=== PATIENT | female | born 1990 | race Caucasian/White ===

== ENCOUNTER 2017-03-03 16:34 | Emergency (ER) | payer BC ==
[~2017-03-03] VITALS: Ht 162.6 cm; Wt 56.7 kg
--- NOTE | 2017-03-03 16:37 | ER Report ---
History and Physical Time Seen By MD: 16:36 Hx. of Stated Complaint: Shortness of breath HPI/ROS Patient is 11 weeks is from [place] and known bilateral PEs switched from eliquis to Lovenox on January 14. cough sob, pleuritic right sided chest pain Remainder of the 14 system rev: Yes Allergies: Coded Allergies: sulfamethoxazole (Verified Allergy, Intermediate, RASH, 03/03/17) trimethoprim (Verified Allergy, Intermediate, RASH, 03/03/17) Home Meds Active Scripts Amoxicillin/Pot Clav 875-125 Mg Tab (AUGMENTIN 875-125 TABLET) 1 Each Tablet, 1 TAB PO Q12H for 7 Days, TAB Prov:HAMIDA MACKENZIE Gini RAILWAY SWITCH OPERATOR-C 03/03/17 Reported Medications Enoxaparin Sodium (LOVENOX) 60 Mg/0.6 Ml Disp.syrin, 60 MG SQ BID 03/03/17 Past Medical/Surgical History Bilateral PE patient is 11 weeks has been seeing heel scorer for clotting disorders states so far testing to shows positive for lupus antigen Reviewed Nurses Notes: Yes Old Medical Records Reviewed: Yes Hx Smoking: No Exposure to Second Hand Smoke?: No Hx Substance Use Disorder: No Hx Alcohol Use: No Family History of: Other Constitutional Vital Sign - Last 24 Hours 03/03/17 03/03/17 03/03/17 03/03/17 16:41 16:41 16:45 16:49 Temp 98.6 Pulse 74 74 Resp 20 19 B/P (MAP) 107/75 (86) 107/75 100/65 (77) Pulse Ox 96 97 03/03/17 03/03/17 03/03/17 03/03/17 17:00 17:04 17:34 17:45 Pulse 74 96 Resp 17 36 B/P (MAP) 101/65 (77) 99/61 (74) Pulse Ox 97 Intake and Output 03/03/17 03/03/17 03/04/17 15:00 23:00 07:00 Intake Total 500 ml Balance 500 ml Physical Exam 26-year-old female anxious alert oriented mild distress HEENT head is normocephalic/atraumatic tympanic membranes are non-reddened throat is non- reddened neck is supple no JVD heart rate is regular no murmurs rubs and gallops lungs are decreased bilateral bases abdomen is gravid no peripheral edema Medical Decision Making Data Points Result Diagram: 03/03/17 1709 03/03/17 1709 Laboratory Hematology Test 03/03/17 17:09 Red Blood Count 4.57 M/uL (4.17-5.56) Mean Corpuscular Volume 92.8 fL (80.0-96.0) Mean Corpuscular Hemoglobin 32.5 pg (26.0-33.0) Mean Corpuscular Hemoglobin Concent 35.0 g/dL (32.0-36.0) Red Cell Distribution Width 12.5 % (11.5-14.5) Mean Platelet Volume 10.0 fL (7.2-11.1) Neutrophils (%) (Auto) 64.7 % (39.4-72.5) Lymphocytes (%) (Auto) 22.9 % (17.6-49.6) Monocytes (%) (Auto) 9.7 % (4.1-12.4) Eosinophils (%) (Auto) 1.6 % (0.4-6.7) Basophils (%) (Auto) 1.1 % (0.3-1.4) Nucleated RBC Relative Count (auto) 0.1 /100WBC Neutrophils # (Auto) 5.8 K/uL (2.0-7.4) Lymphocytes # (Auto) 2.0 K/uL (1.3-3.6) Monocytes # (Auto) 0.9 K/uL (0.3-1.0) Eosinophils # (Auto) 0.1 K/uL (0.0-0.5) Basophils # (Auto) 0.1 K/uL (0.0-0.1) Nucleated RBC Absolute Count (auto) 0.01 K/uL Peripheral Blood Smear No Y/N Prothrombin Time 12.9 seconds (12.0-14.4) Prothromb Time International Ratio 0.98 Activated Partial Thromboplast Time 34 seconds (23-35) D-Dimer Quantitative (PE/DVT) < 0.27 ug/ml (0-0.50) Blood Gas Patient Temperature Unknown DEGREES Venous Blood pH 7.35 (7.31-7.41) Venous Blood Partial Pressure CO2 43 mmHg Venous Blood Partial Pressure O2 < 35 mmHg Venous Blood HCO3 24 mmol/L Venous Blood Oxygen Saturation 55 % Venous Blood Base Excess -2 mmol/L Oxygen Liters/Minute Unknown Sodium Level 134 mmol/L (137-145) Potassium Level 3.9 mmol/L (3.5-5.0) Chloride Level 100 mmol/L (98-107) Carbon Dioxide Level 24 mmol/L (22-31) Blood Urea Nitrogen 8 mg/dl (7-18) Creatinine 0.60 mg/dl (0.52-1.04) Glomerular Filtration Rate Calc > 60.0 Random Glucose 63 mg/dl (75-110) Calcium Level 9.7 mg/dl (8.4-10.2) Total Bilirubin 0.5 mg/dl (0.2-1.3) Aspartate Amino Transf (AST/SGOT) 18 U/L (0-35) Alanine Aminotransferase (ALT/SGPT) 37 U/L (0-56) Alkaline Phosphatase 47 U/L (0-126) Troponin I < 0.012 ng/ml B-Type Natriuretic Peptide 18 pg/ml (0-100) Total Protein 6.8 gm/dl (6.3-8.2) Albumin 3.9 g/dl (3.5-5.0) Chemistry Test 03/03/17 17:09 White Blood Count 8.9 k/uL (4.5-11.0) Red Blood Count 4.57 M/uL (4.17-5.56) Hemoglobin 14.8 g/dL (12.0-16.0) Hematocrit 42.4 % (34.0-47.0) Mean Corpuscular Volume 92.8 fL (80.0-96.0) Mean Corpuscular Hemoglobin 32.5 pg (26.0-33.0) Mean Corpuscular Hemoglobin Concent 35.0 g/dL (32.0-36.0) Red Cell Distribution Width 12.5 % (11.5-14.5) Platelet Count 208 K/uL (150-450) Mean Platelet Volume 10.0 fL (7.2-11.1) Neutrophils (%) (Auto) 64.7 % (39.4-72.5) Lymphocytes (%) (Auto) 22.9 % (17.6-49.6) Monocytes (%) (Auto) 9.7 % (4.1-12.4) Eosinophils (%) (Auto) 1.6 % (0.4-6.7) Basophils (%) (Auto) 1.1 % (0.3-1.4) Nucleated RBC Relative Count (auto) 0.1 /100WBC Neutrophils # (Auto) 5.8 K/uL (2.0-7.4) Lymphocytes # (Auto) 2.0 K/uL (1.3-3.6) Monocytes # (Auto) 0.9 K/uL (0.3-1.0) Eosinophils # (Auto) 0.1 K/uL (0.0-0.5) Basophils # (Auto) 0.1 K/uL (0.0-0.1) Nucleated RBC Absolute Count (auto) 0.01 K/uL Peripheral Blood Smear No Y/N Prothrombin Time 12.9 seconds (12.0-14.4) Prothromb Time International Ratio 0.98 Activated Partial Thromboplast Time 34 seconds (23-35) D-Dimer Quantitative (PE/DVT) < 0.27 ug/ml (0-0.50) Blood Gas Patient Temperature Unknown DEGREES Venous Blood pH 7.35 (7.31-7.41) Venous Blood Partial Pressure CO2 43 mmHg Venous Blood Partial Pressure O2 < 35 mmHg Venous Blood HCO3 24 mmol/L Venous Blood Oxygen Saturation 55 % Venous Blood Base Excess -2 mmol/L Oxygen Liters/Minute Unknown Glomerular Filtration Rate Calc > 60.0 Calcium Level 9.7 mg/dl (8.4-10.2) Total Bilirubin 0.5 mg/dl (0.2-1.3) Aspartate Amino Transf (AST/SGOT) 18 U/L (0-35) Alanine Aminotransferase (ALT/SGPT) 37 U/L (0-56) Alkaline Phosphatase 47 U/L (0-126) Troponin I < 0.012 ng/ml B-Type Natriuretic Peptide 18 pg/ml (0-100) Total Protein 6.8 gm/dl (6.3-8.2) Albumin 3.9 g/dl (3.5-5.0) Coagulation Test 03/03/17 17:09 Prothrombin Time 12.9 seconds Prothromb Time International Ratio 0.98 Activated Partial Thromboplast Time 34 seconds D-Dimer Quantitative (PE/DVT) < 0.27 ug/ml ED Course/Re-evaluation Clinical Indication for ER IV: Hydration ED Course Discussed risk-benefit for patient. CTA prep prior to procedure patient and agree to go ahead with CTA cta is negative for pe, will treat for early pneumonia, has pleuritic cp rll, cough Re-evaluation discussed antibiotics with dr salazar as pt is symptomatic will treat presumptive pneumonia with augmentin Decision to Disposition Date: Mar 03, 2017 Decision to Disposition Time: 17:40 Depart Departure Latest Vital Signs Vital Signs Date Time Temp Pulse Resp B/P (MAP) Pulse Ox O2 Delivery O2 Flow Rate FiO2 03/03/17 17:45 99/61 (74) 03/03/17 17:34 96 36 03/03/17 17:04 97 03/03/17 16:41 98.6 Impression: Primary Impression: Pneumonia Additional Impression: Condition: Improved Disposition: HOME OR SELF-CARE Referrals: PHOTO TECHNOLOGIST 2 Days New Scripts Amoxicillin/Pot Clav 875-125 Mg Tab (AUGMENTIN 875-125 TABLET) 1 Each Tablet 1 TAB PO Q12H for 7 Days, TAB Prov: HAMIDA MACKENZIE 03/03/17 Patient Instructions: Community Acquired Pneumonia (ED), (ED) Additional Instructions: discussed with dr ward will proceed with ct, ASSEMBLER BONDING/PA consult with MD: Verbally Problem Qualifiers HAMIDA MACKENZIE Mar 03, 2017 16:37
[2017-03-03] MEDS ORDERED: NS(*) 0.9% 1000 ML BAG 1,000 ML IV ONE (16:40)
--- NOTE | 2017-03-03 16:53 | EKG ---
FACILITY: [facility] PATIENT NAME: FADY BUTTS : [id number] MR: [id number] V: [id number] EXAM DATE: ORDERING PHYSICIAN: HAMIDA MACKENZIE TECHNOLOGIST: SENAIT Luna Reason : PE Blood Pressure : / mmHG Vent. Rate : 071 BPM Atrial Rate : 071 BPM P-R Int : 140 ms QRS Dur : 082 ms QT Int : 388 ms P-R-T Axes : 074 071 054 degrees QTc Int : 421 ms Sinus rhythm No acute appearing findings Possible right atrial enlargement No previous ECGs available Confirmed by BARNEY BUSH ([id number] on 03/03/2017 7:54:53 PM Referred By: GURDEEP Confirmed By:BARNEY BUSH
[2017-03-03 17:17] LABS: PLATELET COUNT, AUTOMATED 208 K/uL (150-450)
[2017-03-03 17:34] LABS: INR 0.98
[2017-03-03] MEDS ORDERED: IOPAMIDOL 76% 75 ML INFUS BTL 75 ML ONE (17:36)
[2017-03-03] MEDS ORDERED: NS 0.9% 20 ML SDV 60 ML ONE (17:36)
[2017-03-03] MEDS ORDERED: ENOX60DI8 SQ (17:41)
[2017-03-03 17:45] VITALS: BP 99/61
--- NOTE | 2017-03-03 18:06 | RADIOLOGY IMAGING REPORT ---
FACILITY: [facility] [place] PATIENT NAME: Winsome Tellez : 1990 MR: [id number] V: [id number] EXAM DATE: ORDERING PHYSICIAN: HAMIDA MACKENZIE TECHNOLOGIST: Location: [facility] Patient: Winsome Tellez : 1990 Visit/Account:[id number] Date of Sevice: 03/03/2017 CT angiogram chest with contrast Indication: Short of breath. Comparison: None available. Technique: Axial CT images are obtained through the chest after administration of 75 mL Isovue 370 IV contrast. Reformatted coronal and sagittal images were reviewed as well as coronal MIP images. One of the following dose optimization techniques was utilized in the performance of this exam: auto mated exposure control; adjustment of the mA and/or kV according to the patient's size; or use of an iterative reconstruction technique. Specific details can be referenced in the facility's radiology C T exam operational policy. FINDINGS: No evidence of filling defect within the pulmonary vasculature to suggest pulmonary embolus. The heart is normal size without pericardial effusion there is some reflux of contrast from the right atrium into the IVC and hepatic veins. The aorta shows no aneurysm or dissection. Mediastinum and hi lar regions show no enlarged lymph nodes or abnormal density. Lungs show no pleural effusion or pneumothorax. Small area of consolidation seen right lower lobe. Rochelle ngs show no other areas of consolidation. No nodule. No focal interstitial opacities. Airways are jerri ar. Bony structures show no acute fracture or discrete lesions. The chest wall shows no enlarged axillary lymph nodes or masses. Limited views of the upper abdomen are unremarkable. IMPRESSION: 1. No evidence of pulmonary embolus. 2. Small area of right basilar consolidation. Atelectasis versus pneumonia. Report Dictated By: Lew Davis at 03/03/2017 5:53 PM Report E-Signed By: Lwe Davis at 03/03/2017 6:02 PM [id number]
[2017-03-03] MEDS ORDERED: AMOX-559 PO (18:18)
== END 2017-03-03 18:46 | disposition home or self-care (01) ==
LOC: ER 17:25
DX: O99.511 Diseases of the respiratory system complicating pregnancy, first trimester (principal); Z3A.11 11 weeks gestation of pregnancy; R07.89 Other chest pain; R06.02 Shortness of breath
CPT/HCPCS: 71275; 82803; 83880; 84484; 85025; 85379; 85610; 85730; 93005; 96360; 99284; J7030; J7050; Q9967; 82040; 82247; 82310; 82374; 82435; 82565; 82947; 84075; 84132; 84155; 84295; 84450; 84460; 84520

== ENCOUNTER 2017-05-22 18:33 | Emergency (ER) | payer BC ==
[~2017-05-22 18:33] MED LIST: AMOX-559 PO; ENOX60DI8 SQ
[2017-05-22] MEDS ORDERED: LR(*) 1000 ML BAG 1,000 ML IV ONE (18:54)
--- NOTE | 2017-05-22 18:54 | ER Report ---
History and Physical Time Seen By MD: 18:49 HPI/ROS CHIEF COMPLAINT: Anxiety, not eating 4 days HISTORY OF PRESENT ILLNESS: 27-year-old female with severe anxiety with 6 months . She is being followed by Dr. Nick. Patient states she's been severely stressed and been unable to eat since Friday night. Dinner was the last meal she had. She notes some nausea and occasional vomiting. She is reluctant to take anything with her . Patient states she's been unable to eat anything. REVIEW OF SYSTEMS: Respiratory: No cough, no dyspnea. Cardiovascular: No chest pain, no palpitations. Gastrointestinal: No vomiting, no abdominal pain. Musculoskeletal: No back pain. Allergies: Coded Allergies: sulfamethoxazole (Verified Allergy, Intermediate, RASH, 05/22/17) trimethoprim (Verified Allergy, Intermediate, RASH, 05/22/17) Home Meds Reported Medications Vits W-Ca,Fe,Fa(<1MG) ( VITAMINS) 1 Each Tablet, 1 EACH PO DAILY, TAB 05/25/17 Enoxaparin Sodium (LOVENOX) 60 Mg/0.6 Ml Disp.syrin, 60 MG SQ BID 03/03/17 Discontinued Scripts Amoxicillin/Pot Clav 875-125 Mg Tab (AUGMENTIN 875-125 TABLET) 1 Each Tablet, 1 TAB PO Q12H for 7 Days, TAB Prov:HAMIDA MACKENZIE 03/03/17 Reviewed Nurses Notes: Yes Old Medical Records Reviewed: Yes Hx Smoking: No Exposure to Second Hand Smoke?: No Hx Substance Use Disorder: No Hx Alcohol Use: No Constitutional Vital Sign - Last 24 Hours 05/22/17 05/22/17 05/22/17 05/22/17 18:45 18:48 18:51 19:03 Temp 98.6 Pulse 94 106 113 Resp 20 B/P (MAP) 111/81 (91) 111/81 Pulse Ox 94 95 94 O2 Delivery Room Air 05/22/17 05/22/17 05/22/17 05/22/17 19:18 19:23 19:38 19:40 Pulse 91 100 92 B/P (MAP) 108/74 (85) Pulse Ox 96 97 97 05/22/17 05/22/17 05/22/17 05/22/17 19:53 20:00 20:08 20:23 Pulse 121 108 95 B/P (MAP) 108/76 (87) Pulse Ox 96 100 94 05/22/17 05/22/17 05/22/17 05/22/17 20:28 20:30 20:43 20:58 Pulse 98 109 137 B/P (MAP) 112/73 (86) Pulse Ox 96 99 97 05/22/17 05/22/17 21:00 21:13 Pulse 120 B/P (MAP) 107/53 (71) Pulse Ox 99 Physical Exam General Appearance: The patient is alert, has no immediate need for airway protection and no current signs of toxicity. Eyes: Pupils equal and round no injection. Respiratory: Chest is non tender, lungs are clear to auscultation. Cardiac: regular rate and rhythm Gastrointestinal: Abdomen is soft and non tender, gravid, consistent with dates no masses, bowel sounds normal. Musculoskeletal: Neck: Neck is supple and non tender. Extremities have full range of motion and are non tender. Skin: No rashes or lesions. DIFFERENTIAL DIAGNOSIS: After history and physical exam differential diagnosis was considered for anxiety, panic attack, morning sickness, vomiting Medical Decision Making Data Points Result Diagram: 05/22/178 05/22/178 Laboratory Hematology Test 05/22/17 18:43 05/22/17 18:48 Urine Color Yellow Urine Clarity Cloudy Urine pH 5.0 pH (4.8-9.5) Urine Specific Cougar 1.033 Urine Protein 30 mg/dL (NEGATIVE) Urine Glucose (UA) Negative mg/dL (NEGATIVE) Urine Ketones 80 mg/dL (NEGATIVE) Urine Blood Negative (NEGATIVE) Urine Nitrite Negative (NEGATIVE) Urine Bilirubin Negative (NEGATIVE) Urine Urobilinogen 2.0 mg/dL (0.2-1.9) Urine Leukocyte Esterase Trace (NEGATIVE) Urine RBC 1 /HPF (0-2/HPF) Urine WBC 14 /HPF (0-5/HPF) Urine Squamous Epithelial Cells Many /LPF (</=FEW) Urine Bacteria Few /HPF (NONE-FEW) Urine Mucus Few /HPF (NONE-FEW) Red Blood Count 4.60 M/uL (4.17-5.56) Mean Corpuscular Volume 93.3 fL (80.0-96.0) Mean Corpuscular Hemoglobin 32.7 pg (26.0-33.0) Mean Corpuscular Hemoglobin Concent 35.0 g/dL (32.0-36.0) Red Cell Distribution Width 13.3 % (11.5-14.5) Mean Platelet Volume 9.3 fL (7.2-11.1) Neutrophils (%) (Auto) 71.4 % (39.4-72.5) Lymphocytes (%) (Auto) 19.3 % (17.6-49.6) Monocytes (%) (Auto) 8.5 % (4.1-12.4) Eosinophils (%) (Auto) 0.2 % (0.4-6.7) Basophils (%) (Auto) 0.6 % (0.3-1.4) Nucleated RBC Relative Count (auto) 0.0 /100WBC Neutrophils # (Auto) 7.4 K/uL (2.0-7.4) Lymphocytes # (Auto) 2.0 K/uL (1.3-3.6) Monocytes # (Auto) 0.9 K/uL (0.3-1.0) Eosinophils # (Auto) 0.0 K/uL (0.0-0.5) Basophils # (Auto) 0.1 K/uL (0.0-0.1) Nucleated RBC Absolute Count (auto) 0.00 K/uL Sodium Level 135 mmol/L (137-145) Potassium Level 3.4 mmol/L (3.5-5.0) Chloride Level 100 mmol/L (98-107) Carbon Dioxide Level 19 mmol/L (22-31) Blood Urea Nitrogen 7 mg/dl (7-18) Creatinine 0.60 mg/dl (0.52-1.04) Glomerular Filtration Rate Calc > 60.0 Random Glucose 79 mg/dl (75-110) Calcium Level 9.6 mg/dl (8.4-10.2) Total Bilirubin 0.8 mg/dl (0.2-1.3) Aspartate Amino Transf (AST/SGOT) 17 U/L (0-35) Alanine Aminotransferase (ALT/SGPT) 22 U/L (0-56) Alkaline Phosphatase 62 U/L (0-126) Total Protein 8.0 gm/dl (6.3-8.2) Albumin 4.3 g/dl (3.5-5.0) Amylase Level 90 U/L (0-110) Lipase 97 U/L (23-300) Human Chorionic Gonadotropin, Qual Positive (NEGATIVE) Chemistry Test 05/22/17 18:43 05/22/17 18:48 Urine Color Yellow Urine Clarity Cloudy Urine pH 5.0 pH (4.8-9.5) Urine Specific Cougar 1.033 Urine Protein 30 mg/dL (NEGATIVE) Urine Glucose (UA) Negative mg/dL (NEGATIVE) Urine Ketones 80 mg/dL (NEGATIVE) Urine Blood Negative (NEGATIVE) Urine Nitrite Negative (NEGATIVE) Urine Bilirubin Negative (NEGATIVE) Urine Urobilinogen 2.0 mg/dL (0.2-1.9) Urine Leukocyte Esterase Trace (NEGATIVE) Urine RBC 1 /HPF (0-2/HPF) Urine WBC 14 /HPF (0-5/HPF) Urine Squamous Epithelial Cells Many /LPF (</=FEW) Urine Bacteria Few /HPF (NONE-FEW) Urine Mucus Few /HPF (NONE-FEW) White Blood Count 10.4 k/uL (4.5-11.0) Red Blood Count 4.60 M/uL (4.17-5.56) Hemoglobin 15.0 g/dL (12.0-16.0) Hematocrit 42.9 % (34.0-47.0) Mean Corpuscular Volume 93.3 fL (80.0-96.0) Mean Corpuscular Hemoglobin 32.7 pg (26.0-33.0) Mean Corpuscular Hemoglobin Concent 35.0 g/dL (32.0-36.0) Red Cell Distribution Width 13.3 % (11.5-14.5) Platelet Count 240 K/uL (150-450) Mean Platelet Volume 9.3 fL (7.2-11.1) Neutrophils (%) (Auto) 71.4 % (39.4-72.5) Lymphocytes (%) (Auto) 19.3 % (17.6-49.6) Monocytes (%) (Auto) 8.5 % (4.1-12.4) Eosinophils (%) (Auto) 0.2 % (0.4-6.7) Basophils (%) (Auto) 0.6 % (0.3-1.4) Nucleated RBC Relative Count (auto) 0.0 /100WBC Neutrophils # (Auto) 7.4 K/uL (2.0-7.4) Lymphocytes # (Auto) 2.0 K/uL (1.3-3.6) Monocytes # (Auto) 0.9 K/uL (0.3-1.0) Eosinophils # (Auto) 0.0 K/uL (0.0-0.5) Basophils # (Auto) 0.1 K/uL (0.0-0.1) Nucleated RBC Absolute Count (auto) 0.00 K/uL Glomerular Filtration Rate Calc > 60.0 Calcium Level 9.6 mg/dl (8.4-10.2) Total Bilirubin 0.8 mg/dl (0.2-1.3) Aspartate Amino Transf (AST/SGOT) 17 U/L (0-35) Alanine Aminotransferase (ALT/SGPT) 22 U/L (0-56) Alkaline Phosphatase 62 U/L (0-126) Total Protein 8.0 gm/dl (6.3-8.2) Albumin 4.3 g/dl (3.5-5.0) Amylase Level 90 U/L (0-110) Lipase 97 U/L (23-300) Human Chorionic Gonadotropin, Qual Positive (NEGATIVE) Urinalysis Test 05/22/17 18:43 Urine Color Yellow Urine Clarity Cloudy Urine pH 5.0 pH (4.8-9.5) Urine Specific Cougar 1.033 Urine Protein 30 mg/dL (NEGATIVE) Urine Glucose (UA) Negative mg/dL (NEGATIVE) Urine Ketones 80 mg/dL (NEGATIVE) Urine Blood Negative (NEGATIVE) Urine Nitrite Negative (NEGATIVE) Urine Bilirubin Negative (NEGATIVE) Urine Urobilinogen 2.0 mg/dL (0.2-1.9) Urine Leukocyte Esterase Trace (NEGATIVE) Urine RBC 1 /HPF (0-2/HPF) Urine WBC 14 /HPF (0-5/HPF) Urine Squamous Epithelial Cells Many /LPF (</=FEW) Urine Bacteria Few /HPF (NONE-FEW) Urine Mucus Few /HPF (NONE-FEW) ED Course/Re-evaluation Clinical Indication for ER IV: Hydration, IV Access ED Course Patient was admitted to an examination room. H&P was done. The dental diagnoses was considered. On clinical examination. Patient has benign abdominal examination. She is treated with IV fluids, lactated Ringer's, Zofran , and Zofran. After 2 L of saline. She is offered clear liquids and is able to keep apple juice down. She subsequently drinks and ensure. She is advised to continue to advance her diet as tolerated. He is advised to follow-up with Dr. Nick her COLOR CHECKER ROVING OR YARN. Decision to Disposition Date: May 22, 2017 Decision to Disposition Time: 20:41 Depart Departure Latest Vital Signs Vital Signs Date Time Temp Pulse Resp B/P (MAP) Pulse Ox O2 Delivery O2 Flow Rate FiO2 05/22/17 21:13 120 99 05/22/17 21:00 107/53 (71) 05/22/17 18:51 98.6 20 Room Air Impression: Primary Impression: Anxiety Additional Impressions: Vomiting Condition: Improved Disposition: HOME OR SELF-CARE Referrals: SERA NICK MD (PCP) Patient Instructions: Anxiety (ED) Additional Instructions: Advance diet as tolerated Follow-up with COLOR CHECKER ROVING OR YARN if unimproved in 2-4 days Problem Qualifiers Additional Impressions: Vomiting Vomiting type: unspecified Vomiting Intractability: unspecified Nausea presence: unspecified Qualified Codes: R11.10 - Vomiting, unspecified Weeks of gestation: 24 weeks Qualified Codes: Z3A.24 - 24 weeks gestation of HILARY REDMOND DO May 22, 2017 18:53
[2017-05-22] MEDS ORDERED: ONDANSETRON 4 MG/2 ML VIAL IVP ONE (18:55)
[2017-05-22] MEDS ORDERED: PROMETHAZINE 25 MG/ML 1 ML AMP IVP ONE (18:55)
[2017-05-22 19:11] LABS: PLATELET COUNT, AUTOMATED 240 K/uL (150-450)
[2017-05-22] MEDS ORDERED: LR(*) 1000 ML BAG 1,000 ML IV PRN (20:00)
[2017-05-22 21:00] VITALS: BP 107/53
== END 2017-05-22 21:30 | disposition home or self-care (01) ==
LOC: ER 18:43
DX: O99.342 Other mental disorders complicating pregnancy, second trimester (principal); F41.9 Anxiety disorder, unspecified; Z3A.24 24 weeks gestation of pregnancy
CPT/HCPCS: 81001; 82150; 83690; 84703; 85025; 96361; 96374; 96375; 99284; J2405; J2550; J7120; 82040; 82247; 82310; 82374; 82435; 82565; 82947; 84075; 84132; 84155; 84295; 84450; 84460; 84520

== ENCOUNTER 2017-05-25 08:00 | Outpatient (CLI) | payer BC ==
[~2017-05-25] VITALS: Ht 162.6 cm; Wt 61.2 kg
[2017-05-25] MEDS ORDERED: LR(*) 1000 ML BAG 1,000 ML IV PRN (08:35)
[2017-05-25 08:50] VITALS: BP 103/66; Ht 162.6 cm; Wt 61.2 kg
[2017-05-25] MEDS ORDERED: PREN-127 PO (10:12)
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
--- NOTE | 2017-05-25 10:27 | OB/GYN Discharge Summary ---
Discharge Summary Reason for Hosp/Final Diag: (1) Abdominal pain affecting Status: Acute Hospital Course & Plan: 27yo at 22.4 with abdominal pain and diarrhea in . No evidence of labor. No clinical evidence of appendicitis , pyelonephritis. Suspect viral gastroenteritis. testing reassuring. Acute life stressors, good mental health and family support. No acute suicide risk. Will allow discharge home after IV hydration with plan for ongoing PO hydration and f/u next week in clinic. Lates Vital Signs Vital Signs Date Time Temp Pulse Resp B/P (MAP) Pulse Ox O2 Delivery O2 Flow Rate FiO2 05/25/17 08:50 98.1 90 18 103/66 (78) 95 Room Air Weight (Pounds): 135 Condition: Improved Discharge: Home Home Meds Reported Medications Vits W-Ca,Fe,Fa(<1MG) ( VITAMINS) 1 Each Tablet, 1 EACH PO DAILY, TAB 05/25/17 Enoxaparin Sodium (LOVENOX) 60 Mg/0.6 Ml Disp.syrin, 60 MG SQ BID 03/03/17 Discontinued Scripts Amoxicillin/Pot Clav 875-125 Mg Tab (AUGMENTIN 875-125 TABLET) 1 Each Tablet, 1 TAB PO Q12H for 7 Days, TAB Prov:HAMIDA MACKENZIE APRN-Bria 03/03/17 [facility] [phone] Follow up in: 5-7 days Discharge Diet: As Tolerates ROYAL ADAMS MD May 25, 2017 10:27
--- NOTE | 2017-05-25 10:47 | RADIOLOGY IMAGING REPORT ---
FACILITY: [facility] PATIENT NAME: Winsome Tellez : 1990 MR: [id number] V: [id number] EXAM DATE: ORDERING PHYSICIAN: ROYAL ADAMS TECHNOLOGIST: Location: [facility] Patient: Winsome Tellez : 1990 Visit/Account:[id number] Date of Sevice: 05/25/2017 OB TRANSVAG W TRANSABD HISTORY: labor COMPARISON: None FINDINGS: Intrauterine gestations: 1 presentation: Cephalic heart rate: 130 bpm Amniotic fluid volume: ADDIS 19 cm; MVP 6.4 cm Placenta: Fundal and posterior. No placenta previa or retroplacental hemorrhage. Uterus: Gravid, otherwise normal Maternal adnexa: Negative Cervix: Os is closed. Cervical length of 3.6 cm. Gestational Parameters: BPD: 5.8 cm; 23 weeks/ 5 days HC: 21.9 cm; 24 weeks/ 0 days AC: 19.9 cm; 24 weeks/ 4 days FL: 4.5 cm; 25 weeks/ 0 days Average ultrasound age (AUA): 24 weeks/ 3 days Estimated weight (EFW): 710 grams +/- 104 grams. 98th percentile for LMP Anatomic Survey: Not performed. IMPRESSION: 1. Single fetus in cephalic presentation with normal heart rate. 2. Normal ADDIS. 3. Fundal/posterior placenta without previa or hemorrhage. 4. Mean ultrasound age of 24 weeks 3 days corresponding to an HILARIO of 09/11/2017. 5. The os is closed. Cervical length of 3.6 cm. Report Dictated By: Musa Mon MD at 05/25/2017 10:39 AM Report E-Signed By: Musa Mon MD at 05/25/2017 10:43 AM WSN:[id number]
== END 2017-05-25 10:26 | disposition home or self-care (01) ==
LOC: OB 08:00 → UNDOADMOB 08:00 → OB 08:00 → L&D 08:00 → UNDODISOB 10:26 → EDSTATUS 05-28 08:46
PROVIDERS: ATTEND Obstetrics & Gynecology
DX: O26.892 Other specified pregnancy related conditions, second trimester (principal); Z3A.22 22 weeks gestation of pregnancy; R19.7 Diarrhea, unspecified
CPT/HCPCS: 76817; G0378; G0379; J7120; 99213

== ENCOUNTER 2017-06-26 05:58 | Observation (INO) | payer BC ==
[2017-05-25 08:50] VITALS: Ht 162.6 cm; Wt 66.2 kg
[~2017-06-26] VITALS: Ht 162.6 cm; Wt 66.2 kg
[~2017-06-26 05:58] MED LIST changes: +DLR(*) 1000 ML BAG 1,000 ML IV PRN; +LR(*) 1000 ML BAG 1,000 ML IV PRN; +ONDANSETRON 4 MG/2 ML VIAL IV PRN; +PREN-127 PO
--- NOTE | 2017-06-26 06:11 | ER Report ---
History and Physical Time Seen By MD: 05:58 Hx. of Stated Complaint: Vomitting blood since 0400. 27 weeks HPI/ROS CHIEF COMPLAINT: vomiting blood HISTORY OF PRESENT ILLNESS: This is a 27 year old female. She is a female at 27 weeks . She [facility], mainly followed by Dr. Loo. She started having abdominal pain and nausea/ vomiting at about 0400 this morning. about 0500 had hematemesis. Having diffuse abdominal pain, mostly in the epigastric area. She has no history of ulcer disease or gastritis, but she is on Lovenox shots due to pulmonary embolisms. She is having multiple episodes of diarrhea, but no report of blood in the diarrhea or melena. No vaginal bleeding and no leakage of fluid from the vaginal area. She denies dysuria or hematuria. She reports no nose bleeds or bruising, but has been having bleeding gums with brushing her teeth. She has been having some frequent nausea and vomiting and has received IV fluids during the . She reports no fevers or chills. She thinks that this may be food poisoning, but her ate the same food as her and is fine. She was in normal health prior to this starting this morning. REVIEW OF SYSTEMS: Constitutional: No fever or chills. Eyes: No vision changes. ENT: No sore throat. No congestion. Cardiovascular: No chest pain. Respiratory: No shortness of breath. Gastrointestinal: As above. Genitourinary: As above. Musculoskeletal: No back pain. No extremity pain. Skin: No rashes. Neurological: No focal deficits or headache. Allergies: Coded Allergies: sulfamethoxazole (Verified Allergy, Intermediate, RASH, 05/22/17) trimethoprim (Verified Allergy, Intermediate, RASH, 05/22/17) Home Meds Active Scripts Enoxaparin Sodium (ENOXAPARIN SODIUM) 60 Mg/0.6 Ml Disp.syrin, 60 MG SQ BID for 30 Days, #1 SYR Prov:SERA LOO MD 06/26/17 Reported Medications Ondansetron (ZOFRAN ODT) 4 Mg Tab.rapdis, 4 MG PO, TAB.KANU 06/26/17 Acetaminophen (TYLENOL) 325 Mg Tablet, 650 MG PO Q4-6H Y for PAIN, TAB 06/26/17 Vits W-Ca,Fe,Fa(<1MG) ( VITAMINS) 1 Each Tablet, 1 EACH PO DAILY, TAB 05/25/17 Discontinued Reported Medications Enoxaparin Sodium (LOVENOX) 60 Mg/0.6 Ml Disp.syrin, 40 MG SQ BID 03/03/17 Reviewed Nurses Notes: Yes Hx Smoking: Yes Smoking Status: Former Smoker Exposure to Second Hand Smoke?: No Hx Substance Use Disorder: No Hx Alcohol Use: Yes (1 glass of wine since ) Constitutional Physical Exam General Appearance: The patient is alert. Anxious with acute distress due to pain and vomiting. Eyes: Pupils are equal, round. No pallor, injection or icterus. ENT: Mucous membranes are moist. Normal oral mucosa. Posterior oropharynx is normal. Neck: Supple and non tender. Respiratory: Lungs are clear to auscultation. Cardiovascular: Regular rate and rhythm. No murmurs, gallops or rubs. Normal capillary refill. Gastrointestinal: Abdomen is soft, diffuse tenderness, pain mainly in the epigastric area. Abdominal size is consistent with dates. No rebound or guarding. Hyperactive bowel sounds. No costovertebral angle tenderness with percussion. Neurological: Alert and oriented x3. No focal neurologic deficits. Skin: Warm and dry. No rashes. No bruising. Musculoskeletal: Extremities are nontender. No tenderness in palpation of the cervical, thoracic and lumbar spine. DIFFERENTIAL DIAGNOSIS: After history and physical exam, differential diagnosis was considered for hematemesis, abdominal pain mainly in the epigastric area and diarrhea. This combined with the patient on Lovenox therapy. Concern for GI bleeding which could be ulcer disease or gastritis, could also be surface vessel rupture due to ongoing vomiting this morning combined with the Lovenox. Based on the initial presentation, the patient was kept here in the ER initially for initial evaluation. I will be contacting Dr. Arnold who is on- call for [employer] to discuss the case with him, and wants to make sure the patient is stable from a GI bleed standpoint, we will be sending her upstairs for further monitoring on OB. Medical Decision Making Data Points Laboratory Hematology Test 06/26/17 05:50 06/26/17 06:16 Red Blood Count 4.81 M/uL (4.17-5.56) Mean Corpuscular Volume 94.9 fL (80.0-96.0) Mean Corpuscular Hemoglobin 33.1 pg (26.0-33.0) Mean Corpuscular Hemoglobin Concent 34.9 g/dL (32.0-36.0) Red Cell Distribution Width 13.3 % (11.5-14.5) Mean Platelet Volume 9.7 fL (7.2-11.1) Neutrophils (%) (Auto) 58.0 % (39.4-72.5) Lymphocytes (%) (Auto) 32.9 % (17.6-49.6) Monocytes (%) (Auto) 7.6 % (4.1-12.4) Eosinophils (%) (Auto) 0.9 % (0.4-6.7) Basophils (%) (Auto) 0.6 % (0.3-1.4) Nucleated RBC Relative Count (auto) 0.0 /100WBC Neutrophils # (Auto) 4.8 K/uL (2.0-7.4) Lymphocytes # (Auto) 2.7 K/uL (1.3-3.6) Monocytes # (Auto) 0.6 K/uL (0.3-1.0) Eosinophils # (Auto) 0.1 K/uL (0.0-0.5) Basophils # (Auto) 0.0 K/uL (0.0-0.1) Nucleated RBC Absolute Count (auto) 0.00 K/uL Prothrombin Time 12.7 seconds (12.0-14.4) Prothromb Time International Ratio 0.96 Activated Partial Thromboplast Time 27 seconds (23-35) Sodium Level 137 mmol/L (137-145) Potassium Level 3.3 mmol/L (3.5-5.0) Chloride Level 100 mmol/L (98-107) Carbon Dioxide Level 23 mmol/L (22-31) Blood Urea Nitrogen 8 mg/dl (7-18) Creatinine 0.60 mg/dl (0.52-1.04) Glomerular Filtration Rate Calc > 60.0 Random Glucose 92 mg/dl (75-110) Calcium Level 9.8 mg/dl (8.4-10.2) Total Bilirubin 0.4 mg/dl (0.2-1.3) Aspartate Amino Transf (AST/SGOT) 22 U/L (0-35) Alanine Aminotransferase (ALT/SGPT) 18 U/L (0-56) Alkaline Phosphatase 63 U/L (0-126) Total Protein 7.3 gm/dl (6.3-8.2) Albumin 3.9 g/dl (3.5-5.0) Human Chorionic Gonadotropin, Quant 6054 mIU/ml Helicobacter pylori IgG Antibody Negative (NEGATIVE) Urine Color [place] Urine Clarity Slightly-cloudy Urine pH 5.0 pH (4.8-9.5) Urine Specific [place] 1.018 Urine Protein Negative mg/dL (NEGATIVE) Urine Glucose (UA) Negative mg/dL (NEGATIVE) Urine Ketones Negative mg/dL (NEGATIVE) Urine Blood Negative (NEGATIVE) Urine Nitrite Negative (NEGATIVE) Urine Bilirubin Negative (NEGATIVE) Urine Urobilinogen 2.0 mg/dL (0.2-1.9) Urine Leukocyte Esterase Trace (NEGATIVE) Urine RBC 1 /HPF (0-2/HPF) Urine WBC 4 /HPF (0-5/HPF) Urine Squamous Epithelial Cells Many /LPF (</=FEW) Urine Bacteria Negative /HPF (NONE-FEW) Urine Mucus Few /HPF (NONE-FEW) Stool Occult Blood (IFOB) Negative (NEGATIVE) Chemistry Test 06/26/17 05:50 06/26/17 06:16 White Blood Count 8.3 k/uL (4.5-11.0) Red Blood Count 4.81 M/uL (4.17-5.56) Hemoglobin 15.9 g/dL (12.0-16.0) Hematocrit 45.6 % (34.0-47.0) Mean Corpuscular Volume 94.9 fL (80.0-96.0) Mean Corpuscular Hemoglobin 33.1 pg (26.0-33.0) Mean Corpuscular Hemoglobin Concent 34.9 g/dL (32.0-36.0) Red Cell Distribution Width 13.3 % (11.5-14.5) Platelet Count 228 K/uL (150-450) Mean Platelet Volume 9.7 fL (7.2-11.1) Neutrophils (%) (Auto) 58.0 % (39.4-72.5) Lymphocytes (%) (Auto) 32.9 % (17.6-49.6) Monocytes (%) (Auto) 7.6 % (4.1-12.4) Eosinophils (%) (Auto) 0.9 % (0.4-6.7) Basophils (%) (Auto) 0.6 % (0.3-1.4) Nucleated RBC Relative Count (auto) 0.0 /100WBC Neutrophils # (Auto) 4.8 K/uL (2.0-7.4) Lymphocytes # (Auto) 2.7 K/uL (1.3-3.6) Monocytes # (Auto) 0.6 K/uL (0.3-1.0) Eosinophils # (Auto) 0.1 K/uL (0.0-0.5) Basophils # (Auto) 0.0 K/uL (0.0-0.1) Nucleated RBC Absolute Count (auto) 0.00 K/uL Prothrombin Time 12.7 seconds (12.0-14.4) Prothromb Time International Ratio 0.96 Activated Partial Thromboplast Time 27 seconds (23-35) Glomerular Filtration Rate Calc > 60.0 Calcium Level 9.8 mg/dl (8.4-10.2) Total Bilirubin 0.4 mg/dl (0.2-1.3) Aspartate Amino Transf (AST/SGOT) 22 U/L (0-35) Alanine Aminotransferase (ALT/SGPT) 18 U/L (0-56) Alkaline Phosphatase 63 U/L (0-126) Total Protein 7.3 gm/dl (6.3-8.2) Albumin 3.9 g/dl (3.5-5.0) Human Chorionic Gonadotropin, Quant 6054 mIU/ml Helicobacter pylori IgG Antibody Negative (NEGATIVE) Urine Color [place]inta Urine Clarity Slightly-cloudy Urine pH 5.0 pH (4.8-9.5) Urine Specific [place] 1.018 Urine Protein Negative mg/dL (NEGATIVE) Urine Glucose (UA) Negative mg/dL (NEGATIVE) Urine Ketones Negative mg/dL (NEGATIVE) Urine Blood Negative (NEGATIVE) Urine Nitrite Negative (NEGATIVE) Urine Bilirubin Negative (NEGATIVE) Urine Urobilinogen 2.0 mg/dL (0.2-1.9) Urine Leukocyte Esterase Trace (NEGATIVE) Urine RBC 1 /HPF (0-2/HPF) Urine WBC 4 /HPF (0-5/HPF) Urine Squamous Epithelial Cells Many /LPF (</=FEW) Urine Bacteria Negative /HPF (NONE-FEW) Urine Mucus Few /HPF (NONE-FEW) Stool Occult Blood (IFOB) Negative (NEGATIVE) Coagulation Test 06/26/17 05:50 Prothrombin Time 12.7 seconds Prothromb Time International Ratio 0.96 Activated Partial Thromboplast Time 27 seconds Urinalysis Test 06/26/17 06:16 Urine Color Binta Urine Clarity Slightly-cloudy Urine pH 5.0 pH (4.8-9.5) Urine Specific [place] 1.018 Urine Protein Negative mg/dL (NEGATIVE) Urine Glucose (UA) Negative mg/dL (NEGATIVE) Urine Ketones Negative mg/dL (NEGATIVE) Urine Blood Negative (NEGATIVE) Urine Nitrite Negative (NEGATIVE) Urine Bilirubin Negative (NEGATIVE) Urine Urobilinogen 2.0 mg/dL (0.2-1.9) Urine Leukocyte Esterase Trace (NEGATIVE) Urine RBC 1 /HPF (0-2/HPF) Urine WBC 4 /HPF (0-5/HPF) Urine Squamous Epithelial Cells Many /LPF (</=FEW) Urine Bacteria Negative /HPF (NONE-FEW) Urine Mucus Few /HPF (NONE-FEW) ED Course/Re-evaluation Clinical Indication for ER IV: Hydration, IV Access ED Course After the initial evaluation, laboratory studies were ordered, IV fluids and medicines started including morphine 2 mg IV to help with abdominal pain, Zofran 4 mg IV for vomiting, Pepcid 20 mg IV, and normal saline started at 500 cc an hour. Patient's vital signs are stable. I called and spoke with Dr. Arnold to let him know the situation. Once we have the initial blood work back , we will be sending the patient up to obstetrics for further evaluation. Type and screen ordered based on concern for worsening situation with gastrointestinal bleeding as a possibility. Labs are returning and she has a normal H&H. I have spoken with Dr. Arnold regarding the results and we will be sending the patient to OB for further OB monitoring and care. Dr. Arnold will follow-up on the gastrointestinal bleeding and discussed the case with Dr. Morillo if upper endoscopy is needed. Decision to Disposition Date: June 26, 2017 Decision to Disposition Time: 07:09 Depart Departure Latest Vital Signs Impression: Primary Impression: Gastrointestinal bleeding, upper Condition: Improved Disposition: Admitted from ER (discharge from the ER and admitted to the OB for further OB monitoring and evaluation) Referrals: SERA LOO MD (PCP) New Scripts Enoxaparin Sodium (ENOXAPARIN SODIUM) 60 Mg/0.6 Ml Disp.syrin 60 MG SQ BID for 30 Days, #1 SYR Prov: SERA LOO MD 06/26/17 TOYABETINA SPARKS MD June 26, 2017 06:11
[2017-06-26] MEDS ORDERED: FAMOTIDINE(*) 20MG/50ML PREMIX 50 ML IVPB ONE (06:15)
[2017-06-26] MEDS ORDERED: MORPHINE 2 MG/ML SYR IVP ONE (06:15)
[2017-06-26] MEDS ORDERED: NS(*) 0.9% 1000 ML BAG 1,000 ML IV ONE (06:15)
[2017-06-26] MEDS ORDERED: ONDANSETRON 4 MG/2 ML VIAL IVP ONE (06:15)
[2017-06-26 06:36] LABS: PLATELET COUNT, AUTOMATED 228 K/uL (150-450)
[2017-06-26 06:41] LABS: INR 0.96
[2017-06-26 08:05] VITALS: BP 96/56
[2017-06-26] MEDS ORDERED: LR(*) 1000 ML BAG 1,000 ML ONE (08:26)
[2017-06-26] MEDS ORDERED: ONDANSETRON 4 MG/2 ML VIAL IV PRN (08:35)
[2017-06-26] MEDS ORDERED: PROMETHAZINE 25 MG/ML 1 ML AMP IVP PRN (08:35)
[2017-06-26] MEDS ORDERED: FLUSH 10 ML SYR IVP PRN (08:35)
[2017-06-26] MEDS ORDERED: NIFEdipine 10 MG CAP PO PRN ×2 (08:35→09:00)
--- NOTE | 2017-06-26 08:44 | History & Physical ---
History of Present Illness Age of Patient: 27 : 1 Para or TPAL: 0000 EDC per LMP: Sep 24, 2017 Estimated Gestational Age: 27.1 Chief Complaint nausea History of Present Illness The patient is a 27 year old 1 para 0 admitted at 27 1/7 weeks estimated gestational age with an estimated date of delivery 09/24/17. Patient is admitted with complaint of nausea. No vaginal bleeding. Good movement and occasional contractions. She was evaluated for active labor. Nausea started at 0400 and was evaluated in ED prior to FCU admission. She had course complicated by history of PE in September and is on Lovenox. Her record was reviewed. History Allergies: Coded Allergies: sulfamethoxazole (Verified Allergy, Intermediate, RASH, 05/22/17) trimethoprim (Verified Allergy, Intermediate, RASH, 05/22/17) Med Rec Home Meds Reported Medications Vits W-Ca,Fe,Fa(<1MG) ( VITAMINS) 1 Each Tablet, 1 EACH PO DAILY, TAB 05/25/17 Enoxaparin Sodium (LOVENOX) 60 Mg/0.6 Ml Disp.syrin, 60 MG SQ BID 03/03/17 Review of Systems Constitutional: No Fever, No Weight Loss Neurological: No Syncope, No Confusion Eyes: No Vision Change, No Loss of Vision ENT: No Hearing Loss, No Sinus Congestion Cardiovascular: No Chest Pain, No Palpitations Respiratory: No Shortness of Breath, No Cough Gastrointestinal: Nausea, Vomiting Genitourinary: No Dysuria, No Hematuria Musculoskeletal: No Pain, No Sprain Psychiatric: No Depression, No Anxiety Exam General Exam Vital Signs Vital Signs Date Time Temp Pulse Resp B/P (MAP) Pulse Ox O2 Delivery O2 Flow Rate FiO2 06/26/17 07:43 80 98 06/26/17 07:30 99/64 (76) 06/26/17 06:00 22 Room Air General Apperance: Alert/Awake/No Acute Distress Eyes: Normal Extraocular Movement & Vison Cardiovascular: Regular Rate and Rhythm Respiratory: Clear to Auscultation Abdomen: Gravid - Tender Musculoskeletal: No Weakness/Pain Extremities: No Cyanosis,Clubbing or Edema Integumentary: Skin Intact without Lesions or Rash Psychological: Alert & Oriented X3, Appropriate Mood & Affect Cervical Dialation: 1 Cervical Effacement (%): 40 Cervical Consistency: Moderate Cervical Position: Mid Station: -2 Presentation: Vertex Uterine Contractions(Q min): 5 Uterine Contraction Strength: Mild Fetus Heart Tones: 130 Heart Tone Variabilty: Moderate FHT Accelerations: 10X10 FHT Category: I Medical Decision Making Data Points Result Diagram: 06/26/1750 06/26/17549 Assessment and Plan Problems: (1) Threatened premature labor complicating , less than 37 weeks in second trimester, antepartum Assessment & Plan: FFN PERFORMED, WILL CHECK CERVICAL LENGTH. WILL SEE IF FLUIDS IMPROVE UTERINE ACTIVITY (2) Nausea and vomiting in Assessment & Plan: CONTINUE ANTIEMETICS Copies to: SERA LOO MD, JOHN MD June 26, 2017 08:44
[2017-06-26] MEDS ORDERED: ONDA4TAB PO (09:18)
[2017-06-26] MEDS ORDERED: ACET-1966 PO (09:18)
[2017-06-26] MEDS ORDERED: DLR(*) 1000 ML BAG 1,000 ML IV ONE (10:09)
[2017-06-26] MEDS ORDERED: ENOXAPARIN 100 MG/ML SYR SC SCH (10:15)
[2017-06-26] MEDS: ACETAMINOPHEN 325 MG TAB PO PRN ×2 (10:15→16:46)
--- NOTE | 2017-06-26 12:54 | Labor Progress Note ---
Labor Subjective Progress Notes Subjective decrease in uterine activity after given procardia. recently started feeling more contractions. Labor Pain: Mild Labor Objective Vital Signs Vital Signs Date Time Temp Pulse Resp B/P (MAP) Pulse Ox O2 Delivery O2 Flow Rate FiO2 06/26/17 08:05 98.5 69 18 96/56 (69) 96 Room Air Uterine Contractions(Q min): 10 Uterine Contraction Strength: Mild Fetus Heart Tones: 130 Heart Tone Variabilty: Moderate FHT Accelerations: 15X15 FHT Category: I Other Result Diagram: 06/26/17 0550 06/26/17 0550 Assessment and Plan Problems: (1) Threatened premature labor complicating , less than 37 weeks in second trimester, antepartum Assessment & Plan: cervical length 2.8 cm which is normal for gestational age. FFN may have been falsely positive with intercourse at 1700. Will continue observation, will hold celestone unless it appears that true labor (2) Nausea and vomiting in SERA LOO MD June 26, 2017 12:54
--- NOTE | 2017-06-26 12:58 | RADIOLOGY IMAGING REPORT ---
FACILITY: [facility] PATIENT NAME: Winsome Tellez : 1990 MR: [id number] V: [id number] EXAM DATE: ORDERING PHYSICIAN: SERA LOO TECHNOLOGIST: Location: [facility] [place] Patient: Winsome Tellez : 1990 Visit/Account:[id number] Date of Sevice: 06/26/2017 OB LIMITED OB TRANSVAGINAL COMPARISON: 05/25/2017. HISTORY: labor. Gestational age: 27 weeks, 1 day. Gestational age by LMP: FINDINGS: Standard transabdominal obstetric ultrasound. 3-D imaging was performed by the technologist according to protocols developed by the radiologists an d the facility radiology staff. Pipefitter images are stored on PACS. Uterus, cervix, and adnexa: Placenta: Unremarkable posterior placenta with no previa or abruption. anatomic survey: Cephalic presentation. anatomic survey was not performed. Parameters: heart rate: 136 bpm. Amniotic fluid index (ADDIS): 17.5 cm. Largest pocket: 5.1 cm. Cervical length: 2.7 cm. There is no cervical funneling. However, there is a thin uniform sliver of fluid in the endocervical canal. IMPRESSION: 1. 2.7 cm cervix with thin uniform sliver of fluid in the endocervical canal. No funneling. 2. Unremarkable posterior placenta with no previa or abruption. 3. Amniotic fluid index is 17.5 cm with the largest pocket measuring 5.1 cm. 4. Cephalic presentation. Report Dictated By: Oskar Aiken MD at 06/26/2017 12:39 PM Report E-Signed By: Oskar Aiken MD at 06/26/2017 12:54 PM WSN:[id number]
--- NOTE | 2017-06-26 12:58 | RADIOLOGY IMAGING REPORT ---
[place] [facility] [place] Winsome Tellez : 1990 MR: [id number] V: [id number] EXAM DATE: ORDERING PHYSICIAN: SERA LOO TECHNOLOGIST: Location: [facility] Patient: Winsome Tellez : 1990 Visit/Account:[id number] Date of Sevice: 06/26/2017 OB LIMITED OB TRANSVAGINAL COMPARISON: 05/25/2017. HISTORY: labor. Gestational age: 27 weeks, 1 day. Gestational age by LMP: FINDINGS: Standard transabdominal obstetric ultrasound. 3-D imaging was performed by the technologist according to protocols developed by the radiologists an d the facility radiology staff. Copy Lathe Tender images are stored on PACS. Uterus, cervix, and adnexa: Placenta: Unremarkable posterior placenta with no previa or abruption. anatomic survey: Cephalic presentation. anatomic survey was not performed. Parameters: heart rate: 136 bpm. Amniotic fluid index (ADDIS): 17.5 cm. Largest pocket: 5.1 cm. Cervical length: 2.7 cm. There is no cervical funneling. However, there is a thin uniform sliver of fluid in the endocervical canal. IMPRESSION: 1. 2.7 cm cervix with thin uniform sliver of fluid in the endocervical canal. No funneling. 2. Unremarkable posterior placenta with no previa or abruption. 3. Amniotic fluid index is 17.5 cm with the largest pocket measuring 5.1 cm. 4. Cephalic presentation. Report Dictated By: Oskar Aiken MD at 06/26/2017 12:39 PM Report E-Signed By: Oskar Aiken MD at 06/26/2017 12:54 PM WSN:[id number]
[2017-06-26] MEDS ORDERED: ENOX60DI10 SQ (18:57)
--- NOTE | 2017-06-26 18:59 | OB/GYN Discharge Summary ---
Discharge Summary Reason for Hosp/Final Diag: (1) Threatened premature labor complicating , less than 37 weeks in second trimester, antepartum Hospital Course & Plan: cervical length 2.8 cm which is normal for gestational age. FFN may have been falsely positive with intercourse at 1700. Will continue observation, will hold celestone unless it appears that true labor (2) Nausea and vomiting in [place] Vital Signs Vital Signs Date Time Temp Pulse Resp B/P (MAP) Pulse Ox O2 Delivery O2 Flow Rate FiO2 06/26/17 08:05 98.5 69 18 96/56 (69) 96 Room Air Weight (Pounds): 146 Result Diagram: 06/26/17 0550 06/26/17 0550 Condition: Improved Discharge: Home, Self Group Home Meds Reported Medications Ondansetron (ZOFRAN ODT) 4 Mg Tab.rapdis, 4 MG PO, TAB.KANU 06/26/17 Acetaminophen (TYLENOL) 325 Mg Tablet, 650 MG PO Q4-6H Y for PAIN, TAB 06/26/17 Vits W-Ca,Fe,Fa(<1MG) ( VITAMINS) 1 Each Tablet, 1 EACH PO DAILY, TAB 05/25/17 Enoxaparin Sodium (LOVENOX) 60 Mg/0.6 Ml Disp.syrin, 40 MG SQ BID 03/03/17 Follow up in: 1-2 days (need anti xa levels) Discharge Diet: As Tolerates Discharge Activity: Pelvic Rest Copies to: SERA LOO MD, JOHN MD June 26, 2017 18:59
== END 2017-06-26 18:57 | disposition home or self-care (01) ==
LOC: EDSTATUS 05:58 → ER 05:59 → OB 07:44
PROVIDERS: ADMIT Obstetrics & Gynecology; ATTEND Obstetrics & Gynecology
DX: O46.8X2 Other antepartum hemorrhage, second trimester (principal); Z3A.27 27 weeks gestation of pregnancy; O47.02 False labor before 37 completed weeks of gestation, second trimester
CPT/HCPCS: 36415; 76815; 76817; 81001; 82274; 82731; 84702; 85025; 85610; 85730; 86677; 86850; 86900; 86901; 96372; 99285; G0378; J1650; J2270; J2405; J3490; J7030; J7120; 82040; 82247; 82310; 82374; 82435; 82565; 82947; 84075; 84132; 84155; 84295; 84450; 84460; 84520

== ENCOUNTER 2017-07-31 03:07 | Observation (INO) | payer BC ==
[~2017-07-31] VITALS: Ht 162.6 cm; Wt 65.8 kg
[2017-07-31 04:00] VITALS: BP 102/68; Ht 162.6 cm; Wt 65.8 kg
[2017-07-31] MEDS: LR(*) 1000 ML BAG 1,000 ML IV PRN ×2 (04:07→04:18)
[2017-07-31] MEDS ORDERED: NIFEdipine 10 MG CAP PO ONE ×2 (04:10→04:19)
[2017-07-31] MEDS ORDERED: BETAMETHASONE/ACETATE 6 MG/1ML ONE (04:20)
[2017-07-31] MEDS ORDERED: LR(*) 1000 ML BAG 1,000 ML IV PRN (04:31)
[2017-07-31] MEDS ORDERED: BETAMETHASONE/ACETATE 6 MG/1ML IM ONLY ONE (04:35)
[2017-07-31] MEDS: NIFEdipine 10 MG CAP PO PRN ×2 (05:37→09:30)
[2017-07-31] MEDS: LR(*) 1000 ML BAG 1,000 ML IV SCH ×2 (06:05→09:33)
[2017-07-31] MEDS ORDERED: AMPICILLIN 2 GM VIAL 2 GM in NS(*) 0.9% 100 ML ADDVANT BAG 100 ML IVPB ONE (10:50)
[2017-07-31] MEDS ORDERED: MAGNESIUM SULF 20 GM/500 ML IV 500 ML IV SCH (10:54)
[2017-07-31] MEDS ORDERED: CALCIUM GLUC 10% 100 MG/ML VL IVP ONE (10:55)
[2017-07-31] MEDS ORDERED: MAGNESIUM SUL* 4 GM/100 ML BAG 100 ML IVPB ONE (10:55)
[2017-07-31 11:46] LABS: PLATELET COUNT, AUTOMATED 216 K/uL (150-450)
--- NOTE | 2017-07-31 11:52 | History & Physical ---
History of Present Illness Age of Patient: 27 : 1 Para or TPAL: 0 EDC per LMP: Sep 17, 2017 EDC per U/S: Sep 24, 2017 Estimated Gestational Age: 32.1 Chief Complaint Painful contractions History of Present Illness Pt is a 27 y/o @ 32-1/7 weeks gestation who presents to L&D with a chief complaint of painful contractions. Pt reports symptoms starting yesterday evening around 1730 with contractions being very irregular. Contractions began to be more consistent and regular around midnight. Pt reports seeing blood on the tissue paper when she wipes. Has also noticed quarter sized clots when she uses the restroom the last few times. Reports good movement. Had also initially thought that her water had broke just before 3 am. Pt has been hospitalized by her Primary OB about a month ago for threatened PTL. Pt had been given procardia with minimal relief. Pt has a significant medical history of a Pulmonary Embolism 09/26. She has been taking Lovenox 60 mg IM BID through out this . History Patient's Blood Type: A Positive Rubella Status: Immune Group B Strep Screen: Unknown (Collected and will send sample with transport team. ) Obstetrical History: care at [facility] (Dr.'s Nick and Clayton) Past Medical History: History of PE with pleural effusion 09/2016. Allergies: Coded Allergies: sulfamethoxazole (Verified Allergy, Intermediate, RASH, 05/22/17) trimethoprim (Verified Allergy, Intermediate, RASH, 05/22/17) Social History: Domestic Partner Shaun Newman is a PhD at the [employer]. Denies uses of ETOH, Tobacco, or recreational drugs. Med Rec Home Meds Active Scripts Enoxaparin Sodium (ENOXAPARIN SODIUM) 60 Mg/0.6 Ml Disp.syrin, 60 MG SQ BID for 30 Days, #1 SYR Prov:SERA NICK MD 06/26/17 Reported Medications Acetaminophen (TYLENOL) 325 Mg Tablet, 650 MG PO Q4-6H Y for PAIN, TAB 06/26/17 Vits W-Ca,Fe,Fa(<1MG) ( VITAMINS) 1 Each Tablet, 1 EACH PO DAILY, TAB 05/25/17 Discontinued Reported Medications Ondansetron (ZOFRAN ODT) 4 Mg Tab.rapdis, 4 MG PO, TAB.KANU 06/26/17 Review of Systems All Systems Reviewed/Normal: Yes, Except as Noted Constitutional: No Fever, No Weight Loss, No Weight Gain, No Chills, No Night Sweats, No Other Neurological: No Syncope, No Confusion, No Weakness, No Dizziness, No Slurred Speech, No Other Eyes: No Vision Change, No Loss of Vision, No Photophobia, No Other ENT: No Hearing Loss, No Sinus Congestion, No Sore Throat, No Ear Ache, No Tinnitus, No Other Cardiovascular: No Chest Pain, No Palpitations, No Orthostatic Hypotension, No Other Respiratory: No Shortness of Breath, No Cough, No Wheezing, No Other Gastrointestinal: No Nausea, No Vomiting, No Diarrhea, No Dysphagia, No Constipation, No Early Satiety, No Hematemesis, No Hematochezia, No Melena, Abdominal Pain, No Other Genitourinary: No Dysuria, No Hematuria, No Urinary Incontinence, No Other Musculoskeletal: No Pain, No Sprain, No Strain, No Impaired Mobility, No Other Psychiatric: No Depression, No Anxiety, No Other Exam General Exam Vital Signs Vital Signs Date Time Temp Pulse Resp B/P (MAP) Pulse Ox O2 Delivery O2 Flow Rate FiO2 07/31/17 04:00 98.1 79 20 102/68 (79) 99 Room Air General Apperance: Alert/Awake/No Acute Distress Neuro: No Gross deficits Eyes: Normal Extraocular Movement & Vison, PERRLA ENT: Normal Cardiovascular: Regular Rate and Rhythm Respiratory: No Respiratory Distress, Clear to Auscultation Abdomen: Soft, Non-Tender, Non-Distended, Gravid - Non-Tender : Normal Integumentary: Skin Intact without Lesions or Rash Psychological: Alert & Oriented X3, Appropriate Mood & Affect Vaginal Discharge/Fluid?: Bloody Show Cervical Dialation: 3 Cervical Effacement (%): 70 Cervical Consistency: Soft Cervical Position: Mid Station: -2 Uterine Contractions(Q min): 5 Uterine Contraction Strength: Moderate UC Resting Tone: Soft Fetus Feeling Movement?: Yes Heart Tone Variabilty: Moderate FHT Accelerations: 15X15 FHT Decelerations: None FHT Category: I Medical Decision Making Data Points Result Diagram: 07/31/17 1140 Imaging Ultrasound/Imaging [place] [facility] [place] NAME: Winsome Tellez : 1990 MR: [id number] V: [id number] EXAM DATE: ORDERING PHYSICIAN: OSCAR QUINTERO TECHNOLOGIST: Location: [facility] [place] Date of Sevice: 07/31/2017 Exam type: OB >14 WEEKS History: position, weight labor Comparison: June 26, 2017. Findings: A single fetus was demonstrated in cephalic presentation anatomic survey was not performed The placenta is posterior with no demonstration of a placenta previa heart rate 138 bpm The ADDIS measured 22.64 cm. The MVP 7.2 cm BPD 8.56 cm, 95th percentile Head circumference 30.3 cm, 54th percentile Abdominal circumference 28.4 cm, 59th percentile Femur length 6.4 cm a percentile 62% Estimated weight is 2081 g +/- 304 g The estimated gestational age by measurements is 33 weeks and four days. Estimated gestational age by last menstrual. Was 32 weeks and one day. IMPRESSION: 1. Single viable fetus in cephalic presentation with an estimated gestational age by measurements of 33 weeks and four days. Estimated weight is 2081 g +/- 304 g Posterior placenta with no demonstration of a placenta previa ADDIS 22.64 cm. 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 The decision to start the patient on Magnesium sulfate was held secondary to patient being >32 WGA and the Nifedipine doing a good job of Tocolysis. Pt was started on Ampicillin for GBS prophylaxis. Pt began to have bleeding around 0630 that has continued and even progressively worsened. Decision to transport was made around 1000 this morning. The patient and significant other requested cheapest transport possible and desired ground transportation. Conversation was had to discuss the benefits of Air vs ground transportation especially if they were to deliver in the ambulance with a premature they would still have a significant time to get to the hospital and concerns about airway and temperature. They initially wanted to continue to ground transportation and wanted to have personal vehicle as an option. Transfer was accepted at [facility] with ground transport arranged. Magnesium sulfate was started at request of accepting physician. Aldrich catheter placed. GBS was collected (before any antibiotics were started) to be sent with patient. Ultrasound confirms cephalic presentation with ADDIS of 22.64 and efw of 2081. The ground transportation crew called prior to leaving and wanted to have another conversation with the patient about ground vs air. With patients contractions becoming every 2 minutes with magnesium sulfate I encouraged the patient, along with the HROB nurse with the ground crew that air transport would get the patient to the higher level of care sooner. Pt agreed to transport via air and flight was arranged. (2) 32 weeks gestation of Problem Qualifiers (1) labor in third trimester: labor delivery status: without delivery Qualified Codes: O60.03 - labor without delivery, third trimester OSCAR QUINTERO DO Jul 31, 2017 11:51
--- NOTE | 2017-07-31 12:24 | RADIOLOGY IMAGING REPORT ---
FACILITY: [facility] - [place] PATIENT NAME: Winsome Tellez : 1990 MR: [id number] V: [id number] EXAM DATE: ORDERING PHYSICIAN: OSCAR QUINTERO TECHNOLOGIST: Location: [facility] [place] Patient: Winsome Tellez : 1990 Visit/Account:[id number] Date of Sevice: 07/31/2017 Exam type: OB >14 WEEKS History: position, weight labor Comparison: June 26, 2017. Findings: A single fetus was demonstrated in cephalic presentation anatomic survey was not performed The placenta is posterior with no demonstration of a placenta previa heart rate 138 bpm The ADDIS measured 22.64 cm. The MVP 7.2 cm BPD 8.56 cm, 95th percentile Head circumference 30.3 cm, 54th percentile Abdominal circumference 28.4 cm, 59th percentile Femur length 6.4 cm a percentile 62% Estimated weight is 2081 g +/- 304 g The estimated gestational age by measurements is 33 weeks and four days. Estimated gestational age by last menstrual. Was 32 weeks and one day. IMPRESSION: 1. Single viable fetus in cephalic presentation with an estimated gestational age by measurements of 33 weeks and four days. Estimated weight is 2081 g +/- 304 g Posterior placenta with no demonstration of a placenta previa ADDIS 22.64 cm. The MVP 7.2 cm Report Dictated By: Lorena Gillespie MD at 07/31/2017 12:13 PM Report E-Signed By: Lorena Gillespie MD at 07/31/2017 12:19 PM WSN:[email or web address]
[2017-07-31] MEDS ORDERED: BENZOCAINE 20% 60 ML BTL TP PRN (12:35)
[2017-08-01] MEDS ORDERED: BETAMETHASONE/ACETATE 6 MG/1ML IM ONLY ONE (04:30)
== END 2017-07-31 14:30 | disposition short-term general hospital (02) ==
LOC: OB 03:07
PROVIDERS: ADMIT Student in an Organized Health Care Education/Training Program; ATTEND Student in an Organized Health Care Education/Training Program
DX: O60.03 Preterm labor without delivery, third trimester (principal); Z88.2 Allergy status to sulfonamides; Z88.8 Allergy status to other drugs, medicaments and biological substances; Z3A.32 32 weeks gestation of pregnancy; Z86.711 Personal history of pulmonary embolism
CPT/HCPCS: 36415; 76805; 81001; 84112; 85025; 96372; G0378; G0379; J0290; J0702; J3475; J7050; J7120

== ENCOUNTER → 2017-07-31 | Outpatient (REF) ==
[~2017-07-31] MED LIST changes: +ACET-1966 PO; -DLR(*) 1000 ML BAG 1,000 ML IV PRN; +ENOX60DI10 SQ; -LR(*) 1000 ML BAG 1,000 ML IV PRN; +ONDA4TAB PO; -ONDANSETRON 4 MG/2 ML VIAL IV PRN
[2017-07-31 04:00] VITALS: BMI 24.9
== END ==
LOC: AMB 13:40
PROVIDERS: ATTEND Nurse Practitioner
DX: Z02.9 Encounter for administrative examinations, unspecified (principal)

== ENCOUNTER 2017-08-22 11:38 | Inpatient (IN) | payer BC ==
[~2017-08-22] VITALS: Ht 162.6 cm; Wt 64.9 kg
[2017-08-22] MEDS ORDERED: FAMOTIDINE(*) 20MG/50ML PREMIX 50 ML IVPB PRN (12:10)
[2017-08-22] MEDS ORDERED: DLR(*) 1000 ML BAG 1,000 ML IV PRN (12:10)
[2017-08-22] MEDS ORDERED: FLUSH 10 ML SYR IVP PRN (12:10)
[2017-08-22] MEDS ORDERED: METOCLOPRAMIDE 10 MG/2 ML SDV IVP PRN (12:10)
[2017-08-22] MEDS ORDERED: OXYTOCIN 30 UNIT/D5LR 500 ML 500 ML IV PRN ×2 (12:10→23:54)
[2017-08-22] MEDS ORDERED: cefOXitin/DEX(*) 2GM/50ML PREM 50 ML IVPB PRN (12:10)
[2017-08-22] MEDS ORDERED: LIDOCAINE 1% LOCAL 300 MG/30ML INJ PRN (12:10)
[2017-08-22] MEDS ORDERED: LR(*) 1000 ML BAG 1,000 ML ONE (12:14)
[2017-08-22] MEDS ORDERED: LIDOCAINE/SOD BICARB 8.4% SYR ONE (12:14)
[2017-08-22 12:22] VITALS: BP 111/69; Ht 162.6 cm; Wt 64.9 kg
[2017-08-22 12:37] LABS: PLATELET COUNT, AUTOMATED 211 K/uL (150-450)
--- NOTE | 2017-08-22 12:56 | History & Physical ---
History of Present Illness Age of Patient: 27 : 1 Para or TPAL: 0 EDC per LMP: Sep 24, 2017 Estimated Gestational Age: 35.2 Chief Complaint uterine contractions History of Present Illness The patient is a 27 year old 1 para 0 admitted at 35 2/7 weeks estimated gestational age with an estimated date of delivery 09/24/17 . Patient is admitted with complaint of contractions. No vaginal bleeding. Good movement and regular contractions. She was evaluated for active labor. She course complicated by pulmonary embolus in September necessitating therapeutic levels of lovenox then switching to heparin earlier in week. Her last dose of heparin was last night. Her record was reviewed. History Allergies: Coded Allergies: sulfamethoxazole (Verified Allergy, Intermediate, RASH, 05/22/17) trimethoprim (Verified Allergy, Intermediate, RASH, 05/22/17) Social History: Domestic Partner Shaun Newman is a PhD at the [employer]. Denies uses of ETOH, Tobacco, or recreational drugs. Med Rec Home Meds Active Scripts Enoxaparin Sodium (ENOXAPARIN SODIUM) 60 Mg/0.6 Ml Disp.syrin, 60 MG SQ BID for 30 Days, #1 SYR Prov:SERA LOO MD 06/26/17 Reported Medications Acetaminophen (TYLENOL) 325 Mg Tablet, 650 MG PO Q4-6H Y for PAIN, TAB 06/26/17 Vits W-Ca,Fe,Fa(<1MG) ( VITAMINS) 1 Each Tablet, 1 EACH PO DAILY, TAB 05/25/17 Exam General Exam Cardiovascular: Regular Rate and Rhythm Respiratory: Clear to Auscultation Abdomen: Gravid - Non-Tender Extremities: No Edema Vaginal Discharge/Fluid?: Bloody Show Cervical Dialation: 4 Cervical Effacement (%): 90 Cervical Consistency: Soft Cervical Position: Mid Station: 0 Presentation: Vertex Uterine Contractions(Q min): 6 Uterine Contraction Strength: Moderate Fetus Heart Tones: 130 Heart Tone Variabilty: Moderate FHT Accelerations: 15X15 FHT Category: I Medical Decision Making Data Points Result Diagram: 08/22/17 1223 Assessment and Plan Problems: (1) Threatened premature labor complicating , less than 37 weeks in third trimester, antepartum Assessment & Plan: feeling contractions starting this am. checked in office was reported 5 cm with bbow. had been in [facility] for treatment of PTl and received celestone while there. Will see if in active labor and monitor bleeding. Copies to: SERA LOO MD, JOHN MD Aug 22, 2017 12:56
[2017-08-22] MEDS ORDERED: BUPIVACAINE 0.5% INJ 30ML VIAL EPI PRN (14:10)
[2017-08-22] MEDS ORDERED: LIDO/EPI 2% MPF 1:200,000 20ML EPI PRN (14:10)
[2017-08-22] MEDS ORDERED: FENTANYL/ROPIVACAINE 100 ML BAG EPI PRN (14:10)
[2017-08-22] MEDS ORDERED: LIDOCAINE/PF 2% 200MG/10ML AMP 200 MG/10 ML AMPUL EPI PRN (14:10)
[2017-08-22] MEDS ORDERED: BUPIVACAINE 0.25% MPF INJ EPI PRN (14:10)
[2017-08-22] MEDS ORDERED: fentaNYL CITR 100 MCG/2 ML AMP IT PRN (14:10)
[2017-08-22] MEDS ORDERED: ePHEDrine 25 MG/5 ML DISP.SYR IVP PRN (14:10)
[2017-08-22] MEDS ORDERED: ONDANSETRON 4 MG/2 ML VIAL IVP PRN (14:15)
--- NOTE | 2017-08-22 14:49 | Labor Progress Note ---
Labor Subjective Progress Notes Subjective feeling contractions Vaginal Discharge/Fluid: Bloody Show Labor Pain: Moderate Labor Objective Vital Signs Vital Signs Date Time Temp Pulse Resp B/P (MAP) Pulse Ox O2 Delivery O2 Flow Rate FiO2 08/22/17 12:22 97.5 88 18 111/69 (83) 94 Room Air Vaginal Discharge/Fluid?: Bloody Show Cervical Dialation: 5 Cervical Effacement (%): 100 Cervical Consistency: Soft Cervical Position: Anterior Station: 0 Presentation: Vertex Uterine Contractions(Q min): 3 Uterine Contraction Strength: Moderate Fetus Heart Tones: 130 Heart Tone Variabilty: Moderate FHT Accelerations: 15X15 FHT Category: I Other Result Diagram: 08/22/17 1223 Assessment and Plan Problems: (1) Threatened premature labor complicating , less than 37 weeks in third trimester, antepartum Assessment & Plan: change in cervix, PTT elevated, will allow to progress on own and monitor for change SERA LOO MD Aug 22, 2017 14:49
[2017-08-22] MEDS: LR(*) 1000 ML BAG 1,000 ML IV PRN ×2 (14:50→22:40)
[2017-08-22] MEDS: fentaNYL CITR 100 MCG/2 ML AMP IVP PRN ×2 (14:56→20:20)
[2017-08-22] MEDS ORDERED: EPIDURAL KEYS XX PRN (15:00)
[2017-08-22] MEDS ORDERED: DOXY25TA54 PO (16:08)
[2017-08-22] MEDS ORDERED: HEPA500035 SC (16:08)
--- NOTE | 2017-08-22 17:38 | Labor Progress Note ---
Labor Subjective Progress Notes Subjective feeling contractions Vaginal Discharge/Fluid: Bloody Show Labor Objective Vital Signs Vital Signs Date Time Temp Pulse Resp B/P (MAP) Pulse Ox O2 Delivery O2 Flow Rate FiO2 08/22/17 12:22 97.5 88 18 111/69 (83) 94 Room Air Cervical Dialation: 5 Cervical Effacement (%): 100 Cervical Consistency: Soft Cervical Position: Anterior Station: 0 Presentation: Vertex Uterine Contractions(Q min): 4 Uterine Contraction Strength: Moderate Fetus Heart Tones: 130 Heart Tone Variabilty: Moderate FHT Accelerations: 15X15 FHT Category: I Other Result Diagram: 08/22/17 1223 Assessment and Plan Problems: (1) Threatened premature labor complicating , less than 37 weeks in third trimester, antepartum Assessment & Plan: no change, will continue expectant management SERA LOO MD Aug 22, 2017 17:38
--- NOTE | 2017-08-22 20:08 | Labor Progress Note ---
Labor Subjective Progress Notes Subjective feeling pressure Labor Pain: Moderate Labor Objective Vital Signs Vital Signs Date Time Temp Pulse Resp B/P (MAP) Pulse Ox O2 Delivery O2 Flow Rate FiO2 08/22/17 12:22 97.5 88 18 111/69 (83) 94 Room Air Cervical Dialation: 5 Cervical Effacement (%): 100 Cervical Consistency: Soft Cervical Position: Mid Station: 0 Presentation: Vertex Uterine Contractions(Q min): 5 Uterine Contraction Strength: Moderate Fetus Heart Tones: 130 Heart Tone Variabilty: Moderate FHT Accelerations: 15X15 FHT Category: I Other Result Diagram: 08/22/17 1223 Assessment and Plan Problems: (1) Threatened premature labor complicating , less than 37 weeks in third trimester, antepartum Assessment & Plan: will redraw ptt, give iv pain meds, if changes cervix further will likely arom and deliver, will place scd's SERA LOO MD Aug 22, 2017 20:08
--- NOTE | 2017-08-22 22:34 | Labor Progress Note ---
Labor Subjective Progress Notes Subjective SROM FEELING PRESSURE DESIRED EPIDURAL Vaginal Discharge/Fluid: Clear Fluid Labor Pain: Moderate Labor Objective Vital Signs Vital Signs Date Time Temp Pulse Resp B/P (MAP) Pulse Ox O2 Delivery O2 Flow Rate FiO2 08/22/17 12:22 97.5 88 18 111/69 (83) 94 Room Air Cervical Dialation: 9 Cervical Effacement (%): 100 Station: 0 Presentation: Vertex Uterine Contractions(Q min): 7 Uterine Contraction Strength: Moderate Fetus Heart Tones: 130 Heart Tone Variabilty: Moderate FHT Accelerations: 15X15 FHT Category: I Other Result Diagram: 08/22/17 1223 Assessment and Plan Problems: (1) Threatened premature labor complicating , less than 37 weeks in third trimester, antepartum Assessment & Plan: RECEIVED EPIDURAL WITH RELIEF, HAS SROM, WILL AUGMENT IF NEEDED FOR DELIVERY SERA LOO MD Aug 22, 2017 22:34
--- NOTE | 2017-08-22 22:43 | Anesthesia OB Pre-Anes Eval ---
History of Present Illness Anesthesia Start Date: Aug 22, 2017 Anesthesia Start Time: 22:05 OB Anesthesia Diagnosis: spontaneous labor Current Complication: other (35 weeks) EDC: Sep 24, 2017 : 1 Para: 0 Vital Signs: Vital Signs 08/22/17 12:22 Temp 97.5 Pulse 88 Resp 18 B/P (MAP) 111/69 (83) Pulse Ox 94 O2 Delivery Room Air Pain Ratin Heart Tones: 131 Result Diagram: 08/22/17 1223 Height (Inches): 64.00 Weight (Pounds): 143 BMI Calculated: 24.54 Past Medical History Medical History: other (Hx blood clot 09/26 on heparin) Surgical History: other Previous Anesthesia: general Attended Childbirth Classes?: No Hx Anesthesia Reactions: No Hx Family Anesthesia Reaction: No Current Medications: pain medication Home Meds Reported Medications Doxylamine Succinate (UNISOM SLEEP AID) 25 Mg Tablet, 25 MG PO QHS Y for SLEEP 08/22/17 Heparin Sod,Porc/Pf 5000 U/0.5 Ml (HEPARIN SOD 5,000 UNIT/ 0.5 ML) 5,000 Unit/ 0.5 Ml Vial, 59326 UNIT SC BID, VIAL 08/22/17 Acetaminophen (TYLENOL) 325 Mg Tablet, 650 MG PO Q4-6H Y for PAIN, TAB 06/26/17 Vits W-Ca,Fe,Fa(<1MG) ( VITAMINS) 1 Each Tablet, 1 EACH PO DAILY, TAB 05/25/17 Discontinued Scripts Enoxaparin Sodium (ENOXAPARIN SODIUM) 60 Mg/0.6 Ml Disp.syrin, 60 MG SQ BID for 30 Days, #1 SYR Prov:SERA LOO MD 06/26/17 Allergies: Coded Allergies: sulfamethoxazole (Verified Allergy, Intermediate, RASH, 05/22/17) trimethoprim (Verified Allergy, Intermediate, RASH, 05/22/17) nifedipine (Verified Adverse Reaction, Intermediate, ARRYTHMIA, 08/22/17) Anesthesia OB ROS Neurological: No migraines/headaches, No seizures, No neuropathy, No other ENT: Denies Tooth caps, Denies Loose teeth, Denies Chipped teeth, Denies Dentures, Denies Bridges, Denies Retainers, Denies Veneers, Denies Implants, Denies Tongue ring, Denies Other Pulmonary: No asthma, No smoker (pks/day/yrs), No other Airway Class: ll Cardiovascular ROS: No edema, No arrhythmia, No other GI ROS: clear liquids Last Solids Date: Aug 22, 2017 Last Solids Time: 17:00 ROS: No Herpes, No STD(s), No Liver Disease, No Renal Disease, No Other Endocrine ROS: No diabetes, No gestational diabetes, No thyroid disorder, No other Musculoskeletal ROS: No low back pain, No low back injury, No scoliosis, No other ASA Classification: 2 Assessment and Plan Anesthesia Plan: BRYSON OTT CRNA Aug 22, 2017 22:43
--- NOTE | 2017-08-22 22:46 | Procedure Note ---
Anesthetic Placement Note Anesthesia Plan: CSE Permit for Anesthesia Signed: Yes Anesthesia Technique: Patient Sitting Anesthesia Prep: Chlorhexidine Interspace: L 3-4 Local Anesthetic: 1% Lidocaine Amount Local - cc's: 3 Anesthesia Needle: 17g Touhy/Schliff Anesthesia Attempts: 1 Loss of Resistance: Normal Saline Depth of DAISY (cm): 3.5 Epidural Needle Placement: No CSF, No Blood, No Parasthesia Intrathecal Needle: 27 Gauge Pencan Cerebral Spinal Fluid: Yes, Clear Catheter Insertion (cm): 5 Catheter Type: Don - Spring Wound Epidural Dressing: Tegaderm, Tape Anesthesia Tray: Lot Number ([id number]), Expiration Date (09/28), Reference Number ([id number]) Anesthesia Medications: Intrathecal Dose: mcg Fentanyl (10), mg Marcaine MPF (2.5), Time (2210) Epidural Test Dose: 1.5 Lido/Epi (1:200,000), Dose - mL (3), Time (2215), Negative Epidural Loading Dose: 0.25% Marcaine, Dose - ml (3), Other (fent 90 mcgs) Complications: None BRYSON WRIGHT CRNA Aug 22, 2017 22:46
--- NOTE | 2017-08-22 23:57 | Anesthesia Progress Note ---
Progress/Maintenance Anesthesia Note Date: Aug 22, 2017 Anesthesia Note Time: 23:50 Pain Intensity: 6 Pump: On Pump Rate (ML/HR): 6 Motor Level: Bending Knees-Bilateral Dilatation: 9 Position: Left Drug Bolus: 0.25% Marcaine (5cc and started pump) BRYSON WRIGHT CRNA Aug 22, 2017 23:57
--- NOTE | 2017-08-22 23:58 | Procedure Note ---
Anesthesia Medications: Epidural Pump Setting: Bolus Dose - mL (8), Lockout - Minutes (20), Maintenance Rate - mL/hr (6), Maximum per Hour - mL (30) Complications: None BRYSON WRIGHT CRNA Aug 22, 2017 23:58
--- NOTE | 2017-08-23 02:07 | OB Delivery Note ---
Delivery Note Vaginal Delivery Type: Spont. Vaginal Delivery Delivery Date: Aug 23, 2017 Delivery Time: 01:39 Estimated Gestational Age(wks): 35.3 Delivery Anesthesia: Epidural Sex: Female Infant Weight (gms): 2436 Apgars: 1 Minute (6), 5 Minute (7) Repair Needed: Laceration, Superficial, Labial Estimated Blood Loss: 300 Notes: ADMITTED IN EARLY LABOR, MANAGED EXPECTANTLY WITH ELEVATED PTT, PROGRESSED SLOWLY UNTIL EVENING OF 08/24, HAD SROM AND WAS 8 CM, RECEIVED EPIDURAL, THEN LATER AUGMENTED WITH PITOCIN AND PROGRESSED TO COMPLETE. PUSHED EFFECTIVELY AND DELIVERED OVER INTACT PERINEUM. CORD CLAMPED X 2 AND CUT PASSED TO PARTS ROOM ASSOCIATE IN ATTENDANCE FOR DELIVERY, DR. INGRAM. TAKEN TO NURSERY. REPAIR WITH 3-0 VICRYL. Fence Erector Supervisor in Attendence: Yes Copies to: SERA LOO MD, JOHN MD Aug 23, 2017 02:07
[2017-08-23] MEDS ORDERED: INFLUENZA VIRUS VAC 0.5 ML SYR IM ONLY ONE (02:10)
[2017-08-23] MEDS ORDERED: MISOPROSTOL 200 MCG TAB PO SCH (02:10)
[2017-08-23] MEDS ORDERED: MAGNESIUM HYDROXIDE* 30ML UDCP PO PRN (02:10)
[2017-08-23] MEDS ORDERED: MEASLES,MUMP,RUBELLA VAC 0.5ML SC ONE (02:10)
[2017-08-23] MEDS ORDERED: GLYCERIN/WITCH HAZEL LEAF 1 PK TOP PRN (02:10)
[2017-08-23] MEDS ORDERED: LANOLIN OINT 7 GM TUBE TP PRN (02:10)
[2017-08-23] MEDS ORDERED: ACETAMINOPHEN 325 MG TAB PO PRN (02:10)
[2017-08-23] MEDS ORDERED: HYDROCORTISONE 2.5% CR 30GM TB PR PRN (02:10)
[2017-08-23] MEDS ORDERED: BENZOCAINE 20% 60 ML BTL TP PRN (02:10)
[2017-08-23] MEDS ORDERED: DIPHTH/TETANUS/ACEL. PERTUSSIS IM ONE (02:10)
[2017-08-23] MEDS ORDERED: ENOX60DI8 SQ (02:20)
[2017-08-23] MEDS ORDERED: HYDR2TAB4 PO (02:20)
[2017-08-23] MEDS ORDERED: IBUP800T37 PO (02:20)
--- NOTE | 2017-08-23 02:22 | OB/GYN Discharge Summary ---
Discharge Summary Reason for Hosp/Final Diag: (1) Threatened premature labor complicating , less than 37 weeks in third trimester, antepartum Status: Resolved (2) care following vaginal delivery Status: Acute Hospital Course & Plan: LABOR AND DELIVERY VAGINALLY, RESTARTED ON LOVENOX WITH THERAPEUTIC LEVELS PER PLAN. WILL CONTINUE FOR 6 WEEKS. ON DAY 2, Pain controlled, Tolerating diet and activity. Baby . Normal lochia. Lates Vital Signs Vital Signs Date Time Temp Pulse Resp B/P (MAP) Pulse Ox O2 Delivery O2 Flow Rate FiO2 08/22/17 12:22 97.5 88 18 111/69 (83) 94 Room Air Weight (Pounds): 143 Result Diagram: 08/22/17 1223 Condition: Improved Discharge: Home, Self [facility] Meds Active Scripts Enoxaparin Sodium (LOVENOX) 60 Mg/0.6 Ml Disp.syrin, 60 MG SQ BID for 45 Days, # 90 SYR Prov:SERA NICK MD 08/23/17 Ibuprofen (IBUPROFEN) 800 Mg Tablet, 1 TAB PO Q8H, #30 TAB 0 Refills Take with food every 8 hours. Prov:SERA NICK MD 08/23/17 Hydromorphone Hcl (HYDROMORPHONE HCL) 2 Mg Tablet, 2-4 MG PO Q4H for PAIN, #20 TAB 0 Refills Prov:SERA NICK MD 08/23/17 Reported Medications Doxylamine Succinate (UNISOM SLEEP AID) 25 Mg Tablet, 25 MG PO QHS Y for SLEEP 08/22/17 Heparin Sod,Porc/Pf 5000 U/0.5 Ml (HEPARIN SOD 5,000 UNIT/ 0.5 ML) 5,000 Unit/ 0.5 Ml Vial, 01083 UNIT SC BID, VIAL 08/22/17 Acetaminophen (TYLENOL) 325 Mg Tablet, 650 MG PO Q4-6H Y for PAIN, TAB 06/26/17 Vits W-Ca,Fe,Fa(<1MG) ( VITAMINS) 1 Each Tablet, 1 EACH PO DAILY, TAB 05/25/17 Discontinued Scripts Enoxaparin Sodium (ENOXAPARIN SODIUM) 60 Mg/0.6 Ml Disp.syrin, 60 MG SQ BID for 30 Days, #1 SYR Prov:SERA NICK MD 06/26/17 Follow up with: Dr. Nick [phone] Follow up in: 6 wks PP or PO Discharge Diet: As Tolerates Discharge Activity: Pelvic Rest Copies to: SERA NICK MD, JOHN MD Aug 23, 2017 02:22
[2017-08-23 04:30] VITALS: BP 97/64
--- NOTE | 2017-08-23 07:29 | Anesthesia Progress Note ---
Assessment and Plan Anesthesia Plan: CSE Anesthesia Stop Day: Aug 23, 2017 Anesthesia Stop Time: 01:50 Epidural Catheter Removal: Removed Catheter Intact, Yes, Removed by: (RN) Removal Date: Aug 23, 2017 Condition Vital Signs 08/22/17 08/23/17 12:22 04:30 Temp 98.1 Pulse 89 Resp 18 B/P (MAP) 97/64 (75) Pulse Ox 96 O2 Delivery Room Air BRYSON WRIGHT CRNA Aug 23, 2017 07:29
[2017-08-23] MEDS: HYDROmorphone HCL 2 MG TAB PO PRN ×3 (07:52→20:07)
--- NOTE | 2017-08-23 07:54 | OB/GYN Progress Note ---
OB Subjective Progress Notes Subjective Pain controlled, Tolerating diet and activity. Baby . Normal lochia. GI: POS Flatus, NEG Nausea, NEG Vomiting : Voiding Well Pain: Mild OB Objective Physical Exam Vital Signs Date Time Temp Pulse Resp B/P (MAP) Pulse Ox O2 Delivery O2 Flow Rate FiO2 08/23/17 04:30 98.1 89 18 97/64 (75) 96 08/22/17 12:22 Room Air Cardiovascular: Regular Rate and Rhythm Respiratory: Clear to Auscultation Abdomen: Fundus Firm Extremities: No Edema Result Diagram: 08/22/17 1223 Assessment and Plan Post Day: 0 CHEMIST WATER PURIFICATION Assessment: Stable Problems: (1) Threatened premature labor complicating , less than 37 weeks in third trimester, antepartum (2) care following vaginal delivery Status: Resolved Assessment & Plan: Pain controlled, Tolerating diet and activity. Baby . Normal lochia. Will monitor bleeding once lovenox started. SERA LOO MD Aug 23, 2017 07:54
[2017-08-23 08:00] VITALS: BP 84/57
[2017-08-23] MEDS ORDERED: FENTANYL/ROPIVACAINE 100 ML BAG EPI ONE (08:20)
[2017-08-23] MEDS: DOCUSATE CALCIUM 240 MG CAP PO SCH ×2 (09:00→21:19)
[2017-08-23] MEDS ORDERED: IBUPROFEN 800 MG TAB PO SCH (09:00)
[2017-08-23] MEDS: ENOXAPARIN 100 MG/ML SYR SC SCH ×2 (09:00→21:18)
[2017-08-23] MEDS: MULTIVITAMINS (PRENATAL) TAB PO SCH (09:00)
[2017-08-23] MEDS: MISOPROSTOL 200 MCG TAB PO SCH ×3 (09:21→17:31)
[2017-08-23 11:30] VITALS: BP 83/56
[2017-08-23] MEDS: IBUPROFEN 800 MG TAB PO SCH ×2 (12:28→17:00)
[2017-08-23 15:00] VITALS: BP 93/59
[2017-08-23 20:30] VITALS: BP 91/55
[2017-08-24 02:30] VITALS: BP 96/55
[2017-08-24] MEDS: IBUPROFEN 800 MG TAB PO SCH ×3 (02:45→17:37)
[2017-08-24 07:40] VITALS: BP 91/51
--- NOTE | 2017-08-24 10:02 | OB/GYN Progress Note ---
OB Subjective Progress Notes Subjective Pain controlled, Tolerating diet and activity. Baby . Normal lochia. 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 Baby . Normal lochia. SERA LOO MD Aug 24, 2017 10:02
[2017-08-24] MEDS ORDERED: DOCU240C67 PO (10:19)
[2017-08-24] MEDS ORDERED: FERR-41 PO (10:19)
[2017-08-24] MEDS: MULTIVITAMINS (PRENATAL) TAB PO SCH (10:32)
[2017-08-24] MEDS: DOCUSATE CALCIUM 240 MG CAP PO SCH (10:32)
[2017-08-24] MEDS: ENOXAPARIN 100 MG/ML SYR SC SCH (10:33)
[2017-08-24] MEDS: HYDROmorphone HCL 2 MG TAB PO PRN ×2 (12:01→15:09)
[2017-08-24 12:03] VITALS: BP 94/61
--- NOTE | 2017-08-24 14:35 | Anesthesia Post Eval Note ---
Anesthesia Post Eval Note Vital Signs 08/24/17 12:03 Temp 98.0 Pulse 82 Resp 16 B/P (MAP) 94/61 (72) Pulse Ox 95 O2 Delivery Room Air Pt able to participate in Eval: Yes Cardiovascular Status: Satisfactory Respiratory Status: Satisfactory Pain Managment: Satisfactory PO Nausea/Vomiting: Satisfactory Temperature Management: Satisfactory Mental Status: Satisfactory, Alert, Oriented X3 Post-Op Hydration Status: Satisfactory, Tolerating PO Well, Voiding w/o Difficulty Anesthesia Type: CSE BRYSON WRIGHT CRNA Aug 24, 2017 14:35
[2017-08-24 14:56] VITALS: BP 90/53
== END 2017-08-24 18:15 | disposition home or self-care (01) | DRG 775 ==
LOC: OB 11:38 → OBSVTOIN 08-23 01:39 → OB 08-23 04:13
PROVIDERS: ADMIT Obstetrics & Gynecology; ATTEND Obstetrics & Gynecology
PROC: 10E0XZZ Delivery of Products of Conception, External Approach (ICD-10-PCS; principal; 2017-08-23)
PROC: 0HQ9XZZ Repair Perineum Skin, External Approach (ICD-10-PCS; 2017-08-23)
DX: O60.14X0 Preterm labor third trimester with preterm delivery third trimester, not applicable or unspecified (principal); O99.12 Other diseases of the blood and blood-forming organs and certain disorders involving the immune mechanism complicating childbirth; O70.0 First degree perineal laceration during delivery; Z37.0 Single live birth; Z3A.35 35 weeks gestation of pregnancy; Z88.8 Allergy status to other drugs, medicaments and biological substances; Z88.2 Allergy status to sulfonamides; Z86.711 Personal history of pulmonary embolism; Z79.01 Long term (current) use of anticoagulants
CPT/HCPCS: 36415; 85025; 85027; 85520; 85730; 86850; 86900; 86901; 88307; G0378; G0379; J1650; J2405; J2590; J3010; J7120

== ENCOUNTER 2017-08-30 12:44 | Emergency (ER) | payer BC ==
[2017-08-22 12:22] VITALS: Wt 59.0 kg
[~2017-08-30 12:44] MED LIST changes: +DOCU240C67 PO; +DOXY25TA54 PO; +FERR-41 PO; +HEPA500035 SC; +HYDR2TAB4 PO; +IBUP800T37 PO
--- NOTE | 2017-08-30 12:45 | ER Report ---
History and Physical Time Seen By MD: 12:45 HPI/ROS CHIEF COMPLAINT: Chest pain and shortness of breath HISTORY OF PRESENT ILLNESS: Patient is a 27-year-old female who is a now 8 days ago. She had a complex vaginal laceration during the time of delivery and did loose some blood. She had a revision of the tear yesterday secondary to some persistent bleeding. She states that around 4 PM yesterday she began feeling some chest discomfort and shortness of breath. Patient was diagnosed with a pulmonary embolism in September 2016 was hospitalized for 3 weeks in a hospital near [facility]. She is currently on 60 mg of Lovenox twice per day. She has been taking this medication as directed. She denies any abdominal pain. She denies any nausea vomiting or diarrhea. The shortness of breath does seem exertional. Patient did have a complication on Lovenox of having an upper GI bleed. Her Lovenox was held for brief period of time and she was restarted on Lovenox . REVIEW OF SYSTEMS: Constitutional: No fever, no chills. Eyes: No discharge. ENT: No sore throat. Cardiovascular: Chest pain Respiratory: Shortness of breath Gastrointestinal: No abdominal pain, no vomiting. Genitourinary: No hematuria. Musculoskeletal: No back pain. Skin: No rashes. Neurological: No headache. Allergies: Coded Allergies: sulfamethoxazole (Verified Allergy, Intermediate, RASH, 05/22/17) trimethoprim (Verified Allergy, Intermediate, RASH, 05/22/17) nifedipine (Verified Adverse Reaction, Intermediate, ARRYTHMIA, 08/22/17) Home Meds Active Scripts Ferrous Sulfate (FERROUS SULFATE) 325 Mg Tablet.dr, 1 TAB PO BID, #60 TAB 0 Refills Prov:SERA LOO MD 08/24/17 Docusate Calcium (DOCUSATE CALCIUM) 240 Mg Capsule, 1 CAP PO BID, #30 CAPSULE 0 Refills Prov:SERA LOO MD 08/24/17 Enoxaparin Sodium (LOVENOX) 60 Mg/0.6 Ml Disp.syrin, 60 MG SQ BID for 45 Days, # 90 SYR Prov:SERA LOO MD 08/23/17 Ibuprofen (IBUPROFEN) 800 Mg Tablet, 1 TAB PO Q8H, #30 TAB 0 Refills Take with food every 8 hours. Prov:SERA LOO MD 08/23/17 Hydromorphone Hcl (HYDROMORPHONE HCL) 2 Mg Tablet, 2-4 MG PO Q4H for PAIN, #20 TAB 0 Refills Prov:SERA LOO MD 08/23/17 Reported Medications Vits W-Ca,Fe,Fa(<1MG) ( VITAMINS) 1 Each Tablet, 1 EACH PO DAILY, TAB 05/25/17 Discontinued Reported Medications Doxylamine Succinate (UNISOM SLEEP AID) 25 Mg Tablet, 25 MG PO QHS Y for SLEEP 08/22/17 Acetaminophen (TYLENOL) 325 Mg Tablet, 650 MG PO Q4-6H Y for PAIN, TAB 06/26/17 Heparin Sod,Porc/Pf 5000 U/0.5 Ml (HEPARIN SOD 5,000 UNIT/ 0.5 ML) 5,000 Unit/ 0.5 Ml Vial, 49551 UNIT SC BID, VIAL 08/22/17 Past Medical/Surgical History History of pulmonary embolism in November 2016. She was placed on prophylactic Lovenox during her . Did have an upper GI bleed and Lovenox temporarily held. At time of her delivery her Lovenox was restarted. Hx Smoking: No Smoking Status: Never Smoker Exposure to Second Hand Smoke?: No Hx Substance Use Disorder: No Hx Alcohol Use: Yes (1 glass of wine since ) Constitutional Vital Sign - Last 24 Hours 08/30/17 08/30/17 08/30/17 08/30/17 12:47 12:48 13:00 13:14 Temp 97.7 Pulse 89 76 Resp 24 B/P (MAP) 128/71 128/71 (90) 101/66 (78) Pulse Ox 93 94 O2 Delivery Room Air 08/30/17 08/30/17 08/30/17 08/30/17 13:30 14:00 14:14 14:19 Pulse 92 B/P (MAP) 103/71 (82) 104/69 (81) Pulse Ox 95 94 08/30/17 08/30/17 14:30 14:49 Pulse 77 B/P (MAP) 99/70 (80) Pulse Ox 94 Physical Exam General/Constitutional: Patient is awake, alert, nontoxic and in no acute respiratory distress. Head: Normocephalic and atraumatic. Eyes: Conjunctival clear, Pupils are equal and reactive to light. Extraocular muscles are intact and symmetrical. Sclera are clear and anicteric. Ears:External canals are clear. Tympanic membranes are clear with normal landmarks and light reflex. Nares: No rhinorrhea or bleeding. Turbinates are pink and moist. Oropharyngeal: Mucous membranes are moist. There is no pharyngeal erythema or exudate. There are no palatal petechiae. Uvula is midline and symmetrical. Neck: Supple, no adenopathy. Cardiovascular: Heart is regular rate and rhythm without audible murmurs, rubs or gallops. Pulmonary: Lungs are clear to auscultation bilaterally. There are no wheezes, rales, or rhonchi. Chest rise is symmetrical Abdomen: Soft, nontender, no guarding or peritoneal signs. Extremities: No gross deformities, No peripheral cyanosis. Able to move all 4 extremities. Neuro: Alert and oriented X3, Skin: No rashes, skin is warm dry and well perfused. Medical Decision Making Data Points Result Diagram: 08/30/17 1255 08/30/17 1255 Laboratory Hematology Test 08/30/17 12:55 08/30/17 13:59 Red Blood Count 3.58 M/uL (4.17-5.56) Mean Corpuscular Volume 93.3 fL (80.0-96.0) Mean Corpuscular Hemoglobin 32.2 pg (26.0-33.0) Mean Corpuscular Hemoglobin Concent 34.5 g/dL (32.0-36.0) Red Cell Distribution Width 12.9 % (11.5-14.5) Mean Platelet Volume 8.2 fL (7.2-11.1) Neutrophils (%) (Auto) 54.4 % (39.4-72.5) Lymphocytes (%) (Auto) 33.7 % (17.6-49.6) Monocytes (%) (Auto) 6.3 % (4.1-12.4) Eosinophils (%) (Auto) 4.9 % (0.4-6.7) Basophils (%) (Auto) 0.7 % (0.3-1.4) Nucleated RBC Relative Count (auto) 0.1 /100WBC Neutrophils # (Auto) 4.2 K/uL (2.0-7.4) Lymphocytes # (Auto) 2.6 K/uL (1.3-3.6) Monocytes # (Auto) 0.5 K/uL (0.3-1.0) Eosinophils # (Auto) 0.4 K/uL (0.0-0.5) Basophils # (Auto) 0.1 K/uL (0.0-0.1) Nucleated RBC Absolute Count (auto) 0.01 K/uL Fibrinogen 417 mg/dL (169-449) Sodium Level 139 mmol/L (137-145) Potassium Level 3.5 mmol/L (3.5-5.0) Chloride Level 108 mmol/L (98-107) Carbon Dioxide Level 20 mmol/L (22-31) Blood Urea Nitrogen 6 mg/dl (7-18) Creatinine 0.70 mg/dl (0.52-1.04) Glomerular Filtration Rate Calc > 60.0 Random Glucose 73 mg/dl (75-110) Calcium Level 9.3 mg/dl (8.4-10.2) Total Bilirubin 0.3 mg/dl (0.2-1.3) Aspartate Amino Transf (AST/SGOT) 24 U/L (0-35) Alanine Aminotransferase (ALT/SGPT) 20 U/L (0-56) Alkaline Phosphatase 73 U/L (0-126) Troponin I < 0.012 ng/ml Total Protein 6.6 g/dl (6.3-8.2) Albumin 3.7 g/dl (3.5-5.0) Chemistry Test 08/30/17 12:55 08/30/17 13:59 White Blood Count 7.8 k/uL (4.5-11.0) Red Blood Count 3.58 M/uL (4.17-5.56) Hemoglobin 11.5 g/dL (12.0-16.0) Hematocrit 33.4 % (34.0-47.0) Mean Corpuscular Volume 93.3 fL (80.0-96.0) Mean Corpuscular Hemoglobin 32.2 pg (26.0-33.0) Mean Corpuscular Hemoglobin Concent 34.5 g/dL (32.0-36.0) Red Cell Distribution Width 12.9 % (11.5-14.5) Platelet Count 345 K/uL (150-450) Mean Platelet Volume 8.2 fL (7.2-11.1) Neutrophils (%) (Auto) 54.4 % (39.4-72.5) Lymphocytes (%) (Auto) 33.7 % (17.6-49.6) Monocytes (%) (Auto) 6.3 % (4.1-12.4) Eosinophils (%) (Auto) 4.9 % (0.4-6.7) Basophils (%) (Auto) 0.7 % (0.3-1.4) Nucleated RBC Relative Count (auto) 0.1 /100WBC Neutrophils # (Auto) 4.2 K/uL (2.0-7.4) Lymphocytes # (Auto) 2.6 K/uL (1.3-3.6) Monocytes # (Auto) 0.5 K/uL (0.3-1.0) Eosinophils # (Auto) 0.4 K/uL (0.0-0.5) Basophils # (Auto) 0.1 K/uL (0.0-0.1) Nucleated RBC Absolute Count (auto) 0.01 K/uL Fibrinogen 417 mg/dL (169-449) Glomerular Filtration Rate Calc > 60.0 Calcium Level 9.3 mg/dl (8.4-10.2) Total Bilirubin 0.3 mg/dl (0.2-1.3) Aspartate Amino Transf (AST/SGOT) 24 U/L (0-35) Alanine Aminotransferase (ALT/SGPT) 20 U/L (0-56) Alkaline Phosphatase 73 U/L (0-126) Troponin I < 0.012 ng/ml Total Protein 6.6 g/dl (6.3-8.2) Albumin 3.7 g/dl (3.5-5.0) Coagulation Test 08/30/17 12:55 08/30/17 13:59 Fibrinogen 417 mg/dL EKG/Imaging Imaging CTA PE-Neg ED Course/Re-evaluation Clinical Indication for ER IV: IV Access ED Course 08/30/2017 1:03:08 pm plan at this time will be to perform a cardiac workup including troponin testing. We will also perform anticoagulation panel. An perform a CTA of the chest rule out pulmonary embolus Decision to Disposition Date: Aug 30, 2017 Decision to Disposition Time: 15:49 Depart Departure Latest Vital Signs Vital Signs Date Time Temp Pulse Resp B/P (MAP) Pulse Ox O2 Delivery O2 Flow Rate FiO2 08/30/17 14:49 77 94 08/30/17 14:30 99/70 (80) 08/30/17 12:47 97.7 24 Room Air Impression: Primary Impression: Chest pain Condition: Improved Disposition: HOME OR SELF-CARE Patient Instructions: Chest Pain (DC) Problem Qualifiers Primary Impression: Chest pain Chest pain type: unspecified Qualified Codes: R07.9 - Chest pain, unspecified MEREDITH STOREY MD Aug 30, 2017 12:45
[2017-08-30 13:11] LABS: PLATELET COUNT, AUTOMATED 345 K/uL (150-450)
[2017-08-30] MEDS ORDERED: NS 0.9% 25 ML BAG 50 ML ONE (13:13)
[2017-08-30] MEDS ORDERED: IOPAMIDOL 76% 75 ML INFUS BTL 75 ML ONE (13:13)
--- NOTE | 2017-08-30 13:55 | EKG ---
FAC[place] [facility] [place] NAME: FADY BUTTS : [id number] MR: [id number] V: [id number] EXAM DATE: ORDERING PHYSICIAN: MEREDITH STOREY TECHNOLOGIST: MICHAEL Test Reason : CP Blood Pressure : / mmHG Vent. Rate : 081 BPM Atrial Rate : 081 BPM P-R Int : 150 ms QRS Dur : 078 ms QT Int : 356 ms P-R-T Axes : 058 026 043 degrees QTc Int : 413 ms Sinus rhythm No acute appearing findings Confirmed by BARNEY BUSH ([id number]) on 08/30/2017 6:38:05 PM Referred By: RALEIGH Confirmed By:BARNEY BUSH
[2017-08-30 15:30] VITALS: BP 101/63
--- NOTE | 2017-08-30 19:51 | RADIOLOGY IMAGING REPORT ---
FACILITY: [facility] PATIENT NAME: Winsome Tellez : 1990 MR: [id number] V: [id number] EXAM DATE: ORDERING PHYSICIAN: MEREDITH STOREY TECHNOLOGIST: Location: [facility] - [place] Patient: Winsome Tellez : 1990 Visit/Account:[id number] Date of Sevice: 08/30/2017 EXAMINATION: CTA chest with IV contrast HISTORY: History of pulmonary embolism. one week ago. COMPARISON: CTA chest from 03/03/2017. TECHNIQUE: Pulmonary embolus protocol - Thin-slice axial imaging of the chest was performed during maximal pulmonary arterial opacification with intravenous nonionic iodinated contrast. 3D sagittal an d coronal slab MIPs and 2D reconstructions in the coronal and sagittal planes were performed to aid i n pulmonary embolus detection. Design Leader images have been stored on PACS. CONTRAST: 75 mL of IV Isovue-370. One of the following dose optimization techniques was utilized in the performance of this exam: Autom ated exposure control; adjustment of the mA and/or kV according to the patient's size; or use of an i terative reconstruction technique. Specific details can be referenced in the facility's radiology C T exam operational policy. FINDINGS: CTA CHEST: Please note that this exam is optimized for assessment of the pulmonary arteries and is not intended as a diagnostic study of the thoracic aorta, coronary arteries or venous structures. Angiographic Findings: Pulmonary arteries: There are no filling defects in the main, right, left, lobar, segmental or visual ized sub-segmental branches of the pulmonary arterial system. No intraluminal webs or bronchial ludy aterals. Other vasculature: Negative. Additional non-angiographic findings: Lungs/pleura: Minimal right basilar scar is unchanged. No focal consolidation or pleural effusion. Small calcified right lung granuloma. Mediastinum/talat: Negative. Heart/pericardium: Negative. Musculoskeletal/body wall: Negative. Lymph nodes: Negative. Upper abdomen: Negative. Lower neck: Negative. IMPRESSION: 1. No evidence of acute or chronic pulmonary embolism. 2. Minimal right basilar scarring is unchanged. 3. Small calcified right lung granuloma is unchanged. Report Dictated By: Shawna Kemp MD at 08/30/2017 2:36 PM Report E-Signed By: Shawna Kemp MD at 08/30/2017 2:46 PM [id number]
== END 2017-08-30 15:57 | disposition home or self-care (01) ==
LOC: ER 12:53
DX: R07.89 Other chest pain (principal)
CPT/HCPCS: 36415; 71275; 81241; 81291; 83090; 84484; 85025; 85210; 85240; 85300; 85302; 85303; 85305; 85306; 85384; 85525; 85610; 85613; 85635; 85670; 85730; 86146; 86147; 93005; 99284; Q9967; 82040; 82247; 82310; 82374; 82435; 82565; 82947; 84075; 84132; 84155; 84295; 84450; 84460; 84520

== ENCOUNTER 2017-08-31 08:26 | Emergency (ER) | payer BC ==
[2017-08-22 12:22] VITALS: BMI 24.5
--- NOTE | 2017-08-31 08:42 | ER Report ---
History and Physical Time Seen By MD: 08:28 HPI/ROS CHIEF COMPLAINT: Vaginal bleeding HISTORY OF PRESENT ILLNESS: Patient is a 27-year-old who delivered through spontaneous vaginal delivery partially [address] Loo. Patient has past medical history for pulmonary embolism and is currently on 60 mg of Lovenox twice per day. Patient did have a laceration that was repaired at time of delivery. She states however over the ensuing week she had continued bleeding. She was seen [address] Dalal and had a revision of her repair. Apparently patient states that she now has torn again and is having bleeding. She states the bleeding began again this morning. She is having the same pain that she experienced on this past Friday when she was seen in the office and had a revision repair by Dr. Dalal. REVIEW OF SYSTEMS: Constitutional: [No fever, no chills.] Eyes: [No discharge.] ENT: [No sore throat.] Cardiovascular: [No chest pain, no palpitations.] Respiratory: [No cough, no shortness of breath.] Gastrointestinal: [No abdominal pain, no vomiting.] Genitourinary: [No hematuria.] Musculoskeletal: [No back pain.] Skin: [No rashes.] Neurological: [No headache.] Allergies: Coded Allergies: sulfamethoxazole (Verified Allergy, Intermediate, RASH, 05/22/17) trimethoprim (Verified Allergy, Intermediate, RASH, 05/22/17) nifedipine (Verified Adverse Reaction, Intermediate, ARRYTHMIA, 08/22/17) Home Meds Active Scripts Ferrous Sulfate (FERROUS SULFATE) 325 Mg Tablet., 1 TAB PO BID, #60 TAB 0 Refills Prov:SERA LOO MD 08/24/17 Docusate Calcium (DOCUSATE CALCIUM) 240 Mg Capsule, 1 CAP PO BID, #30 CAPSULE 0 Refills Prov:SERA LOO MD 08/24/17 Enoxaparin Sodium (LOVENOX) 60 Mg/0.6 Ml Disp.syrin, 60 MG SQ BID for 45 Days, # 90 SYR Prov:SERA LOO MD 08/23/17 Ibuprofen (IBUPROFEN) 800 Mg Tablet, 1 TAB PO Q8H, #30 TAB 0 Refills Take with food every 8 hours. Prov:SERA LOO MD 08/23/17 Hydromorphone Hcl (HYDROMORPHONE HCL) 2 Mg Tablet, 2-4 MG PO Q4H for PAIN, #20 TAB 0 Refills Prov:SERA LOO MD 08/23/17 Reported Medications Vits W-Ca,Fe,Fa(<1MG) ( VITAMINS) 1 Each Tablet, 1 EACH PO DAILY, TAB 05/25/17 Discontinued Reported Medications Doxylamine Succinate (UNISOM SLEEP AID) 25 Mg Tablet, 25 MG PO QHS Y for SLEEP 08/22/17 Acetaminophen (TYLENOL) 325 Mg Tablet, 650 MG PO Q4-6H Y for PAIN, TAB 06/26/17 Hx Smoking: No Smoking Status: Never Smoker Exposure to Second Hand Smoke?: No Hx Substance Use Disorder: No Hx Alcohol Use: Yes (1 glass of wine since ) Constitutional Vital Sign - Last 24 Hours 08/31/17 08/31/17 08/31/17 08/31/17 08:26 08:32 08:36 08:39 Temp 98.1 Pulse ? 79 Resp 24 B/P (MAP) 121/86 (98) 114/88 Pulse Ox 95 94 O2 Delivery Room Air 08/31/17 08/31/17 08/31/17 08/31/17 08:41 08:51 08:56 09:01 Pulse 76 ? Pulse Ox 94 08/31/17 08/31/17 08/31/17 08/31/17 09:06 09:16 09:21 09:26 Pulse ? B/P (MAP) 103/72 (82) 08/31/17 08/31/17 08/31/17 08/31/17 09:30 09:31 09:36 09:41 Pulse ??? 71 66 B/P (MAP) 98/59 (72) Pulse Ox 96 95 95 08/31/17 08/31/17 09:46 09:57 Pulse 67 B/P (MAP) 90/57 (68) Pulse Ox 92 Intake and Output 08/31/17 08/31/17 09/01/17 15:00 23:00 07:00 Intake Total 500 ml Balance 500 ml Physical Exam General Appearance: The patient is alert, has no immediate need for airway protection and no current signs of toxicity. Respiratory: Chest is non tender, lungs are clear to auscultation. Cardiac: regular rate and rhythm Gastrointestinal: Abdomen is soft and non tender, no masses, bowel sounds normal. 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 Medical Decision Making Data Points Result Diagram: 08/31/17 0846 08/31/17 0846 Laboratory Hematology Test 08/31/17 08:46 Red Blood Count 3.25 M/uL (4.17-5.56) Mean Corpuscular Volume 93.2 fL (80.0-96.0) Mean Corpuscular Hemoglobin 33.2 pg (26.0-33.0) Mean Corpuscular Hemoglobin Concent 35.6 g/dL (32.0-36.0) Red Cell Distribution Width 13.2 % (11.5-14.5) Mean Platelet Volume 8.2 fL (7.2-11.1) Neutrophils (%) (Auto) 47.8 % (39.4-72.5) Lymphocytes (%) (Auto) 39.5 % (17.6-49.6) Monocytes (%) (Auto) 7.2 % (4.1-12.4) Eosinophils (%) (Auto) 4.5 % (0.4-6.7) Basophils (%) (Auto) 1.0 % (0.3-1.4) Nucleated RBC Relative Count (auto) 0.1 /100WBC Neutrophils # (Auto) 3.9 K/uL (2.0-7.4) Lymphocytes # (Auto) 3.2 K/uL (1.3-3.6) Monocytes # (Auto) 0.6 K/uL (0.3-1.0) Eosinophils # (Auto) 0.4 K/uL (0.0-0.5) Basophils # (Auto) 0.1 K/uL (0.0-0.1) Nucleated RBC Absolute Count (auto) 0.01 K/uL Prothrombin Time 12.8 seconds (12.0-14.4) Prothromb Time International Ratio 0.96 Activated Partial Thromboplast Time 37 seconds (23-35) Sodium Level 137 mmol/L (137-145) Potassium Level 3.3 mmol/L (3.5-5.0) Chloride Level 106 mmol/L (98-107) Carbon Dioxide Level 22 mmol/L (22-31) Blood Urea Nitrogen 9 mg/dl (7-18) Creatinine 0.70 mg/dl (0.52-1.04) Glomerular Filtration Rate Calc > 60.0 Random Glucose 77 mg/dl (75-110) Calcium Level 9.1 mg/dl (8.4-10.2) Chemistry Test 08/31/17 08:46 White Blood Count 8.1 k/uL (4.5-11.0) Red Blood Count 3.25 M/uL (4.17-5.56) Hemoglobin 10.8 g/dL (12.0-16.0) Hematocrit 30.3 % (34.0-47.0) Mean Corpuscular Volume 93.2 fL (80.0-96.0) Mean Corpuscular Hemoglobin 33.2 pg (26.0-33.0) Mean Corpuscular Hemoglobin Concent 35.6 g/dL (32.0-36.0) Red Cell Distribution Width 13.2 % (11.5-14.5) Platelet Count 360 K/uL (150-450) Mean Platelet Volume 8.2 fL (7.2-11.1) Neutrophils (%) (Auto) 47.8 % (39.4-72.5) Lymphocytes (%) (Auto) 39.5 % (17.6-49.6) Monocytes (%) (Auto) 7.2 % (4.1-12.4) Eosinophils (%) (Auto) 4.5 % (0.4-6.7) Basophils (%) (Auto) 1.0 % (0.3-1.4) Nucleated RBC Relative Count (auto) 0.1 /100WBC Neutrophils # (Auto) 3.9 K/uL (2.0-7.4) Lymphocytes # (Auto) 3.2 K/uL (1.3-3.6) Monocytes # (Auto) 0.6 K/uL (0.3-1.0) Eosinophils # (Auto) 0.4 K/uL (0.0-0.5) Basophils # (Auto) 0.1 K/uL (0.0-0.1) Nucleated RBC Absolute Count (auto) 0.01 K/uL Prothrombin Time 12.8 seconds (12.0-14.4) Prothromb Time International Ratio 0.96 Activated Partial Thromboplast Time 37 seconds (23-35) Glomerular Filtration Rate Calc > 60.0 Calcium Level 9.1 mg/dl (8.4-10.2) Coagulation Test 08/31/17 08:46 Prothrombin Time 12.8 seconds Prothromb Time International Ratio 0.96 Activated Partial Thromboplast Time 37 seconds EKG/Imaging Imaging ED Course/Re-evaluation ED Course 08/31/2017 8:47:[address] Arnold regarding this patient he will come in to evaluate the patient. He requests coags be drawn. I will also give some IV pain medication and check CBC to compare to yesterday. Re-evaluation 08/31/2017 9:38:30 am patient was seen and evaluated by Dr. Hahn in the emergency department. He performed a primary repair of vaginal laceration. Patient was instructed to discontinue Lovenox for the next 48 hours and resume. Decision to Disposition Date: Aug 31, 2017 Decision to Disposition Time: 09:40 Depart Departure Latest Vital Signs Vital Signs Date Time Temp Pulse Resp B/P (MAP) Pulse Ox O2 Delivery O2 Flow Rate FiO2 08/31/17 09:57 90/57 (68) 08/31/17 09:46 67 92 08/31/17 08:39 98.1 24 Room Air Impression: Primary Impression: Vaginal laceration Condition: Improved Disposition: HOME OR SELF-CARE Patient Instructions: Laceration (ED) Additional Instructions: Hold your Lovenox for the next 48 hours. Problem Qualifiers Primary Impression: Vaginal laceration Encounter type: initial encounter Qualified Codes: S31.41XA - Laceration without foreign body of vagina and vulva, initial encounter MEREDITH STOREY MD Aug 31, 2017 08:42
[2017-08-31] MEDS ORDERED: fentaNYL CITR 100 MCG/2 ML AMP IVP ONE ×2 (08:45→09:50)
[2017-08-31] MEDS ORDERED: ONDANSETRON 4 MG/2 ML VIAL IVP ONE (08:45)
[2017-08-31] MEDS ORDERED: NS(*) 0.9% 500 ML BAG 500 ML IV ONE (08:50)
[2017-08-31 09:02] LABS: PLATELET COUNT, AUTOMATED 360 K/uL (150-450)
[2017-08-31 09:18] LABS: INR 0.96
--- NOTE | 2017-08-31 09:42 | Post Operative Note ---
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
[2017-08-31 09:57] VITALS: BP 90/57
--- NOTE | 2017-09-01 09:04 | CONSULTATION ---
EVENT DATE: August 31, 2017 CHIEF COMPLAINT Bleeding from vaginal laceration. HISTORY OF PRESENT ILLNESS This is a 27-year-old G1, P0 who is none days and presented to the emergency room with report of bleeding from her obstetrical tear. She delivered and suffered a left labial laceration, which was stitched and repaired. She is, however, anticoagulated due to a history of PE, which she suffered in September 2016 in [place], [place]. She has been treated with Lovenox through her , therapeutic dosing and was continued on therapeutic dosing . She was seen in the office this past Friday for the same complaint. Dr. Dalal performed a couple of stitches in the office under local anesthetic and appeared to have resolved the bleeding. She awoke this morning, got up and felt a tearing sensation in the same location and bleeding resumed with clot formation between the labia. She was also seen in the emergency department yesterday with a complaint of shortness of breath and chest pain and was ruled out for a pulmonary embolus. REVIEW OF SYSTEMS Negative except as above. ALLERGIES SULFAMETHOXAZOLE, TRIMETHOPRIM and NIFEDIPINE. ACTIVE MEDICATIONS 1. Ferrous Sulfate. 2. Dulcolax. 3. Lovenox 50 mg subcutaneous b.i.d. 4. Ibuprofen p.r.n. 5. Hydromorphone 2 mg tablets two to four every four hours p.r.n. 6. vitamins. PAST MEDICAL HISTORY As per the HPI. SOCIAL HISTORY . She denies tobacco, alcohol or drug use. FAMILY HISTORY Noncontributory. PHYSICAL EXAMINATION VITAL SIGNS: See emergency room record. GENERAL: Anxious, slightly distraught, healthy young female. Otherwise, no acute physical distress. : Examination of the perineum revealed left labial laceration with sutures in place and an obstetrical tear at the perineum, all appropriately sutured, although along the left side just medial to the laceration and stitches in that location was an open wound of approximately 7 mm. It was actively bleeding at a very slow pace. Otherwise, normal external female genitalia. LABORATORY AND RADIOLOGY [*] Hemoglobin on 08/30/2017 was 11.5, hematocrit 33.4, platelets 345. Unremarkable metabolic profile. Hemoglobin as measured today 10.8, hematocrit 30.3, platelets 360. ASSESSMENT 1. Full anticoagulation secondary to history of pulmonary embolus. 2. Left labial obstetrical tear with acute blood loss and anemia as a consequence of acute blood loss. PLAN A single stitch repair of the above-mentioned defect and obstetrical repair was performed in the emergency room under local anesthetic, single stitch using 3-0 chromic on an HS needle, [id number] style, which arrested any bleeding and put the wound into hemostasis. I have asked her to go 48 hours without any Lovenox to assist in further clotting and healing of this wound and then to restart 60 mg daily until next Friday and then resume her normal b.i.d. dosing. She is to follow up in the clinic for any further concerns and for her checkup. She relates understanding of these instructions. All questions were answered to her satisfaction. She has medications at home. I asked her to avoid nonsteroidal anti-inflammatories for the time-being until this issue is resolved. YEYO
== END 2017-08-31 09:59 | disposition home or self-care (01) ==
LOC: ER 08:40
DX: S31.41XA Laceration without foreign body of vagina and vulva, initial encounter (principal)
CPT/HCPCS: 12001; 85025; 85610; 85730; 96361; 96374; 96375; 96376; 99284; J2405; J3010; J7040; 82310; 82374; 82435; 82565; 82947; 84132; 84295; 84520

== ENCOUNTER 2017-09-14 18:25 | Emergency (ER) | payer BC ==
[2017-08-22 12:22] VITALS: Wt 59.0 kg
[2017-09-14] MEDS ORDERED: NS(*) 0.9% 1000 ML BAG 1,000 ML IV ONE (18:56)
--- NOTE | 2017-09-14 18:56 | ER Report ---
History and Physical Time Seen By MD: 18:55 Hx. of Stated Complaint: PATIENT REPORTS CHEST PAIN AND SHORTNESS OF BREATH FOR THE LAST 3 DAYS. SHE IS ALSO REPORTING DIZZINESS WHEN SHE STANDS UP HPI/ROS CHIEF COMPLAINT: Shortness breath, chest pain HISTORY OF PRESENT ILLNESS: Patient is a 27-year-old female here 3 weeks with shortness breath, chest pain. Patient has a history of pulmonary embolisms approximately one year prior and had been on Lovenox up until a couple weeks ago when she was taken off of this for vaginal bleeding after giving . Patient reports recently restarting her Lovenox dosing. She reports that she is currently passing intermittent clots vaginally, however she started with left sided chest pain which is sharp in nature, shortness of breath which is worse with deep inspiration. She reports that this is similar pain when compared to her prior pulmonary embolisms. She is maintaining good oxygen saturations in the mid 90s on room air however reports that she will have near syncopal episodes when getting up from a seated position. Patient denies fevers, chills, cough, nausea, vomiting. REVIEW OF SYSTEMS: Constitutional: No fever, no chills. Eyes: No discharge. ENT: No sore throat. Cardiovascular: + chest pain, no palpitations. Respiratory: No cough, + shortness of breath. Gastrointestinal: No abdominal pain, no vomiting. Genitourinary: No hematuria. Musculoskeletal: No back pain. Skin: No rashes. Neurological: No headache. Allergies: Coded Allergies: sulfamethoxazole (Verified Allergy, Intermediate, RASH, 05/22/17) trimethoprim (Verified Allergy, Intermediate, RASH, 05/22/17) nifedipine (Verified Adverse Reaction, Intermediate, ARRYTHMIA, 08/22/17) Home Meds Active Scripts Ferrous Sulfate (FERROUS SULFATE) 325 Mg Tablet.dr, 1 TAB PO BID, #60 TAB 0 Refills Prov:SERA LOO MD 08/24/17 Docusate Calcium (DOCUSATE CALCIUM) 240 Mg Capsule, 1 CAP PO BID, #30 CAPSULE 0 Refills Prov:SERA LOO MD 08/24/17 Enoxaparin Sodium (LOVENOX) 60 Mg/0.6 Ml Disp.syrin, 60 MG SQ BID for 45 Days, # 90 SYR Prov:SERA LOO MD 08/23/17 Ibuprofen (IBUPROFEN) 800 Mg Tablet, 1 TAB PO Q8H, #30 TAB 0 Refills Take with food every 8 hours. Prov:SERA LOO MD 08/23/17 Hydromorphone Hcl (HYDROMORPHONE HCL) 2 Mg Tablet, 2-4 MG PO Q4H for PAIN, #20 TAB 0 Refills Prov:SERA LOO MD 08/23/17 Reported Medications Vits W-Ca,Fe,Fa(<1MG) ( VITAMINS) 1 Each Tablet, 1 EACH PO DAILY, TAB 05/25/17 Hx Smoking: No Smoking Status: Never Smoker Exposure to Second Hand Smoke?: No Hx Substance Use Disorder: No Hx Alcohol Use: Yes (1 glass of wine since ) Constitutional Vital Sign - Last 24 Hours 09/14/17 09/14/17 09/14/17 09/14/17 18:29 18:30 18:30 18:40 Temp 98.3 Pulse 85 95 Resp 24 25 B/P (MAP) 116/95 (102) 97/66 (76) 97/66 Pulse Ox 95 95 O2 Delivery Room Air 09/14/17 09/14/17 09/14/17 09/14/17 18:55 19:01 19:10 19:15 Pulse 96 89 82 Resp 22 24 18 B/P (MAP) 111/69 (83) Pulse Ox 96 96 96 09/14/17 09/14/17 09/14/17 09/14/17 19:21 19:30 19:35 19:50 Temp 98.3 Pulse 80 74 83 Resp 20 19 16 B/P (MAP) 97/73 (81) Pulse Ox 94 96 96 09/14/17 09/14/17 09/14/17 09/14/17 20:05 20:20 20:30 20:35 Pulse 81 84 74 Resp 17 14 16 B/P (MAP) 97/58 (71) 89/60 (70) Pulse Ox 94 96 94 09/14/17 20:36 B/P (MAP) 93/72 (79) Intake and Output 09/14/17 09/14/17 09/15/17 15:00 23:00 07:00 Intake Total 1000 ml Balance 1000 ml Physical Exam General Appearance: The patient is alert, has no immediate need for airway protection and no signs of toxicity. No acute distress Eyes: Pupils equal and round no pallor or injection. ENT, Mouth: Mucous membranes are moist. Respiratory: There are no retractions, lungs are clear to auscultation. Cardiovascular: + Tachycardic. Gastrointestinal: Abdomen is soft and non tender, no masses, bowel sounds normal. Neurological: No focal neurological deficits Skin: Warm and dry, no rashes. Musculoskeletal: Neck is supple non tender. Extremities are nontender, nonswollen and have full range of motion. DIFFERENTIAL DIAGNOSIS: After history and physical exam differential diagnosis was considered for shortness of breath including but not limited to pulmonary infectious process, COPD, asthma, pulmonary embolus and congestive heart failure. Medical Decision Making Data Points Result Diagram: 09/14/17 1845 09/14/17 1845 Laboratory Hematology Test 09/14/17 18:45 09/14/17 19:15 Red Blood Count 4.14 M/uL (4.17-5.56) Mean Corpuscular Volume 93.9 fL (80.0-96.0) Mean Corpuscular Hemoglobin 31.9 pg (26.0-33.0) Mean Corpuscular Hemoglobin Concent 34.0 g/dL (32.0-36.0) Red Cell Distribution Width 13.4 % (11.5-14.5) Mean Platelet Volume 9.3 fL (7.2-11.1) Neutrophils (%) (Auto) 41.2 % (39.4-72.5) Lymphocytes (%) (Auto) 44.9 % (17.6-49.6) Monocytes (%) (Auto) 8.2 % (4.1-12.4) Eosinophils (%) (Auto) 4.4 % (0.4-6.7) Basophils (%) (Auto) 1.3 % (0.3-1.4) Nucleated RBC Relative Count (auto) 0.0 /100WBC Neutrophils # (Auto) 2.6 K/uL (2.0-7.4) Lymphocytes # (Auto) 2.8 K/uL (1.3-3.6) Monocytes # (Auto) 0.5 K/uL (0.3-1.0) Eosinophils # (Auto) 0.3 K/uL (0.0-0.5) Basophils # (Auto) 0.1 K/uL (0.0-0.1) Nucleated RBC Absolute Count (auto) 0.00 K/uL Prothrombin Time 12.3 seconds (12.0-14.4) Prothromb Time International Ratio 0.91 Activated Partial Thromboplast Time 34 seconds (23-35) Sodium Level 140 mmol/L (137-145) Potassium Level 3.9 mmol/L (3.5-5.0) Chloride Level 103 mmol/L (98-107) Carbon Dioxide Level 24 mmol/L (22-31) Blood Urea Nitrogen 9 mg/dl (7-18) Creatinine 0.70 mg/dl (0.52-1.04) Glomerular Filtration Rate Calc > 60.0 Random Glucose 99 mg/dl (75-110) Calcium Level 9.8 mg/dl (8.4-10.2) Total Bilirubin 0.3 mg/dl (0.2-1.3) Aspartate Amino Transf (AST/SGOT) 25 U/L (0-35) Alanine Aminotransferase (ALT/SGPT) 18 U/L (0-56) Alkaline Phosphatase 55 U/L (0-126) Total Protein 7.3 g/dl (6.3-8.2) Albumin 4.3 g/dl (3.5-5.0) Blood Gas Puncture Site Left radial Blood Gas Patient Temperature 98.3 DEGREES Arterial Blood pH 7.42 (7.35-7.45) Arterial Blood Partial Pressure CO2 34 mmHg (32-37) Arterial Blood Partial Pressure O2 77 mmHg (60-80) Arterial Blood HCO3 22 mmol/L (20-26) Arterial Blood Oxygen Saturation 96 % (92-100) Arterial Blood Base Excess -2.0 mmol/L Perez Test Acceptable Oxygen Liters/Minute Room air Chemistry Test 09/14/17 18:45 09/14/17 19:15 White Blood Count 6.2 k/uL (4.5-11.0) Red Blood Count 4.14 M/uL (4.17-5.56) Hemoglobin 13.2 g/dL (12.0-16.0) Hematocrit 38.9 % (34.0-47.0) Mean Corpuscular Volume 93.9 fL (80.0-96.0) Mean Corpuscular Hemoglobin 31.9 pg (26.0-33.0) Mean Corpuscular Hemoglobin Concent 34.0 g/dL (32.0-36.0) Red Cell Distribution Width 13.4 % (11.5-14.5) Platelet Count 358 K/uL (150-450) Mean Platelet Volume 9.3 fL (7.2-11.1) Neutrophils (%) (Auto) 41.2 % (39.4-72.5) Lymphocytes (%) (Auto) 44.9 % (17.6-49.6) Monocytes (%) (Auto) 8.2 % (4.1-12.4) Eosinophils (%) (Auto) 4.4 % (0.4-6.7) Basophils (%) (Auto) 1.3 % (0.3-1.4) Nucleated RBC Relative Count (auto) 0.0 /100WBC Neutrophils # (Auto) 2.6 K/uL (2.0-7.4) Lymphocytes # (Auto) 2.8 K/uL (1.3-3.6) Monocytes # (Auto) 0.5 K/uL (0.3-1.0) Eosinophils # (Auto) 0.3 K/uL (0.0-0.5) Basophils # (Auto) 0.1 K/uL (0.0-0.1) Nucleated RBC Absolute Count (auto) 0.00 K/uL Prothrombin Time 12.3 seconds (12.0-14.4) Prothromb Time International Ratio 0.91 Activated Partial Thromboplast Time 34 seconds (23-35) Glomerular Filtration Rate Calc > 60.0 Calcium Level 9.8 mg/dl (8.4-10.2) Total Bilirubin 0.3 mg/dl (0.2-1.3) Aspartate Amino Transf (AST/SGOT) 25 U/L (0-35) Alanine Aminotransferase (ALT/SGPT) 18 U/L (0-56) Alkaline Phosphatase 55 U/L (0-126) Total Protein 7.3 g/dl (6.3-8.2) Albumin 4.3 g/dl (3.5-5.0) Blood Gas Puncture Site Left radial Blood Gas Patient Temperature 98.3 DEGREES Arterial Blood pH 7.42 (7.35-7.45) Arterial Blood Partial Pressure CO2 34 mmHg (32-37) Arterial Blood Partial Pressure O2 77 mmHg (60-80) Arterial Blood HCO3 22 mmol/L (20-26) Arterial Blood Oxygen Saturation 96 % (92-100) Arterial Blood Base Excess -2.0 mmol/L Perez Test Acceptable Oxygen Liters/Minute Room air Coagulation Test 09/14/17 18:45 Prothrombin Time 12.3 seconds Prothromb Time International Ratio 0.91 Activated Partial Thromboplast Time 34 seconds EKG/Imaging EKG Interpretation 12 lead EKG: Normal sinus rhythm, rate 88, QTC 421, no ischemic changes or signs of right heart strain. Rhythm: normal sinus rhythm [place]: normal QRS: normal ST segments: normal Monitor Interpretation: Normal Sinus Rhythm Imaging CT ANGIOGRAM OF THE CHEST WITH INTRAVENOUS CONTRAST, PE PROTOCOL DATE OF EXAM: 09/14/2017 19:05 COMPARISON: CT chest August 30, 2017. INDICATION: DYSPNEA, CHEST PAIN. TECHNIQUE: Contrast enhanced chest CT performed during the injection of 75 ml of Isovue-370. Three-dimensional (MIP) reconstructions were performed. FINDINGS: There is no pulmonary arterial filling defect. Thyroid: The thyroid is incompletely imaged. Thoracic inlet: No adenopathy. Heart and great vessels: Heart size is normal. Mediastinum and talat: No mediastinal or hilar adenopathy. Lungs and pleura: No effusion, consolidation, or pneumothorax. Trace atelectasis at the lung bases. Breast and axilla: Breast parenchymal density is suggestive of a state but correlate with history. Bones and soft tissues: No acute osseous abnormality. Upper abdomen: Unremarkable. IMPRESSION: Negative for pulmonary arterial embolus. ED Course/Re-evaluation ED Course Patient is a 27-year-old female here with complaints of chest pain, shortness of breath in the setting of a recent PE one year prior, 3 weeks recently taken off her Lovenox and place back on several days ago. Patient reports having similar symptoms to her prior PE prompting evaluation emergency department tonight. Due to the patient's current symptoms and risk factors, CTA was completed to rule out pulmonary embolism. Labs were unremarkable. He is maintaining oxygen saturations in the mid to high 90%. CTA showed no acute pulmonary embolisms. I discussed the findings with the patient and she voiced understanding. Patient agreed to return with worsening symptoms and to continue her current medications as prescribed. Patient was stable at time of discharge. Decision to Disposition Date: Sep 14, 2017 Decision to Disposition Time: 20:42 Depart Departure Latest Vital Signs Vital Signs Date Time Temp Pulse Resp B/P (MAP) Pulse Ox O2 Delivery O2 Flow Rate FiO2 09/14/17 20:36 93/72 (79) 09/14/17 20:35 74 16 94 09/14/17 19:21 98.3 09/14/17 18:30 Room Air Impression: Primary Impression: Shortness of breath Additional Impression: Chest pain Condition: Improved Disposition: HOME OR SELF-CARE Patient Instructions: Chest Pain (ED), Dyspnea (ED) Additional Instructions: Please follow up promptly with your family doctor and [facility] TACTICAL ANALYSIS TECHNICIAN. Please return promptly with increasing shortness breath, fevers, chills, chest pain. Problem Qualifiers RADHA COLEY DO Sep 14, 2017 18:55
--- NOTE | 2017-09-14 19:01 | EKG ---
FACILITY: [facility] [place] PATIENT NAME: FADY BUTTS : [id number] MR: [id number] V: [id number] EXAM DATE: ORDERING PHYSICIAN: RADHA COLEY TECHNOLOGIST: TRISH Luna Reason : SOB Blood Pressure : / mmHG Vent. Rate : 088 BPM Atrial Rate : 088 BPM P-R Int : 138 ms QRS Dur : 074 ms QT Int : 348 ms P-R-T Axes : 075 065 058 degrees QTc Int : 421 ms Normal sinus rhythm Possible Left atrial enlargement No ST-T abnormalities When compared with ECG of 30-AUG-2017 13:04, Unchanged Confirmed by MINH PEREIRA ([id number]) on 09/15/2017 6:44:05 AM Referred By: VIANCA Confirmed By:MINH PEREIRA
[2017-09-14] MEDS ORDERED: IOPAMIDOL 76% 100 ML INFUS BTL 100 ML ONE (19:12)
[2017-09-14 19:15] LABS: PLATELET COUNT, AUTOMATED 358 K/uL (150-450)
[2017-09-14 19:30] LABS: INR 0.91
[2017-09-14] MEDS ORDERED: NS 0.9% 25 ML BAG 50 ML ONE (19:38)
--- NOTE | 2017-09-14 20:34 | RADIOLOGY IMAGING REPORT ---
FACILITY: [facility] PATIENT NAME: Winsome Tellez : 1990 MR: [id number] V: [id number] EXAM DATE: ORDERING PHYSICIAN: RADHA COLEY TECHNOLOGIST: Location: [facility] Patient: Winsome Tellez : 1990 Visit/Account:[id number] Date of Sevice: 09/14/2017 CT ANGIOGRAM OF THE CHEST WITH INTRAVENOUS CONTRAST, PE PROTOCOL DATE OF EXAM: 09/14/2017 19:05 COMPARISON: CT chest August 30, 2017. INDICATION: DYSPNEA, CHEST PAIN. TECHNIQUE: Contrast enhanced chest CT performed during the injection of 75 ml of Isovue-370. Three-d imensional (MIP) reconstructions were performed. FINDINGS: There is no pulmonary arterial filling defect. Thyroid: The thyroid is incompletely imaged. Thoracic inlet: No adenopathy. Heart and great vessels: Heart size is normal. Mediastinum and talat: No mediastinal or hilar adenopathy. Lungs and pleura: No effusion, consolidation, or pneumothorax. Trace atelectasis at the lung bases. Breast and axilla: Breast parenchymal density is suggestive of a state but correlate with history. Bones and soft tissues: No acute osseous abnormality. Upper abdomen: Unremarkable. IMPRESSION: Negative for pulmonary arterial embolus. One of the following dose optimization techniques was utilized in the performance of this exam: Autom ated exposure control; adjustment of the mA and/or kV according to the patient's size; or use of an i terative reconstruction technique. Specific details can be referenced in the facility's radiology C T exam operational policy. Report Dictated By: Mayur Forbes MD at 09/14/2017 8:23 PM Report E-Signed By: Mayur Forbes MD at 09/14/2017 8:30 PM [id number]
[2017-09-14 20:36] VITALS: BP 93/72
== END 2017-09-14 20:53 | disposition home or self-care (01) ==
LOC: ER 18:39
DX: R06.02 Shortness of breath (principal); R07.9 Chest pain, unspecified
CPT/HCPCS: 36600; 71275; 82803; 85025; 85610; 85730; 93005; 99284; J7030; Q9967; 82040; 82247; 82310; 82374; 82435; 82565; 82947; 84075; 84132; 84155; 84295; 84450; 84460; 84520

== ENCOUNTER 2017-09-17 12:35 | Observation (INO) | payer BC ==
[2017-08-22 12:22] VITALS: Ht 162.6 cm; Wt 54.4 kg
[~2017-09-17] VITALS: Ht 162.6 cm; Wt 54.4 kg
[2017-09-17] VITALS (24 sets, daily range): BP systolic 80–112; BP diastolic 54–78
[~2017-09-17 12:35] MED LIST changes: -LOR5/325 PO
[2017-09-17] MEDS ORDERED: fentaNYL CITR 100 MCG/2 ML AMP ONE ×2 (12:41→13:42)
[2017-09-17] MEDS ORDERED: NORMOSOL R SOLN(*) 1000 ML BAG 1,000 ML IV ONE (12:45)
[2017-09-17] MEDS ORDERED: ETOMIDATE 20 MG/10 ML VIAL ONE (12:50)
[2017-09-17 12:55] LABS: PLATELET COUNT, AUTOMATED 306 K/uL (150-450)
[2017-09-17] MEDS ORDERED: SUCCINYLCHOL CHL 200MG/10ML VL ONE (12:55)
[2017-09-17] MEDS ORDERED: DEXAMETHASONE SOD 4 MG/ML VIAL ONE (12:55)
[2017-09-17] MEDS ORDERED: MISOPROSTOL 200 MCG TAB PO ONE (13:15)
[2017-09-17] MEDS ORDERED: NS(*) 0.9% 1000 ML BAG 1,000 ML ONE (13:38)
[2017-09-17] MEDS ORDERED: LR(*) 1000 ML BAG 1,000 ML IV PRN (13:55)
[2017-09-17] MEDS ORDERED: ONDANSETRON 4 MG/2 ML VIAL IV PRN (13:55)
[2017-09-17] MEDS ORDERED: ZOLPIDEM TARTRATE 10 MG TAB PO PRN (13:55)
[2017-09-17] MEDS ORDERED: SIMETHICONE 80 MG CHEW CHEW PRN (13:55)
[2017-09-17] MEDS ORDERED: ACETAMINOPHEN 325 MG TAB PO PRN (13:55)
[2017-09-17] MEDS ORDERED: PROMETHAZINE 25 MG/ML 1 ML AMP IVP PRN (13:55)
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
[2017-09-17] MEDS ORDERED: NS(*) 0.9% 500 ML BAG 500 ML ONE (16:35)
--- NOTE | 2017-09-17 17:07 | Post Operative Note ---
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 Operative Day Date: Sep 17, 2017 Time: 14:00 Physicians Surgeon: Benny Anesthesia: General TE by Flo Hayward MD Diagnosis Pre-Op Diagnosis: Delayed hemorrhage Post-Op Diagnosis: Same, retained placental fragment Procedure Findings: 4x2x2 cm mass of tissue removed from uterus, consistent with retained placenta Procedure(s): D&C of uterus, with suction (dictation #[id number]) Specimen Removed:(Maybe N/A): Uterine curettings to path Complications: None Fluids Fluids: 1000 IV crystalloid Estimated Blood Loss: 50 ml intraoperatively Dictated Date OP Note Dictated: Sep 17, 2017 Time OP Note Dictated: 17:06 Copies to: NANETTE ESTES MD, MARK F MD Sep 17, 2017 14:23
[2017-09-17] MEDS ORDERED: BENZOCAINE 20% 60 ML BTL TP PRN (17:20)
[2017-09-17] MEDS ORDERED: GLYCERIN/WITCH HAZEL LEAF 1 PK TP PRN (17:20)
--- NOTE | 2017-09-17 17:52 | OB/GYN Progress Note ---
OB Subjective Progress Notes Subjective Feeling better, alert now. Some lower abdominal cramping, and labial sutures are irritating. Hasn't been up yet. Receiving 2nd unit of PRBC's due to tachycardia and hypotension. I described the procedure again. OB Objective Physical Exam Vital Signs Date Time Temp Pulse Resp B/P (MAP) Pulse Ox O2 Delivery O2 Flow Rate FiO2 09/17/17 17:21 99.0 106 16 95/57 09/17/17 16:33 97 Room Air Intake and Output 09/18/17 07:00 Intake Total 4050 ml Output Total 50 ml Balance 4000 ml Intake Oral 100 ml IV Total 3700 ml Blood Product 250 ml Output Estimated Blood Loss 50 ml General Appearance: Alert/Awake/No Acute Distress Abdomen: Soft, Non-Tender, Non-Distended, Bowel Sounds Present Psychological: Alert & Oriented X3, Appropriate Mood & Affect Result Diagram: 09/17/17 1240 Assessment and Plan Problems: (1) Delayed hemorrhage Assessment & Plan: Now stable. Receiving 2nd unit of PRBC's, might need a third unit. Watch overnight, follow VS, recheck CBC in morning. Hopefully home in the morning. NANETTE ESTES MD Sep 17, 2017 17:52
--- NOTE | 2017-09-17 17:57 | OPERATIVE REPORT 1 ---
EVENT DATE: September 17, 2017 SURGEON: Rashawn Zapata MD ANESTHESIOLOGIST: Westley Hayward MD ANESTHESIA: General endotracheal. PROCEDURE PERFORMED Dilatation and curettage of uterus. PREOPERATIVE DIAGNOSIS Delayed hemorrhage. POSTOPERATIVE DIAGNOSIS Delayed hemorrhage. INDICATIONS This is a 27-year-old woman is about 25 days from a normal delivery. She has a history of a pulmonary embolus in September 2016 and has been taking Lovenox 60 mg subcutaneously b.i.d. . She has had some intermittent episodes of vaginal bleeding, especially in the last three days or so, but most of the bleeding is mild to moderate with a few brief episodes of heavy bleeding. Today, she was out shopping, came to her car, and had sudden onset of very heavy bleeding that soaked her clothes and her own car seat. She came to our office and was having heavy bright red vaginal bleeding from the cervical os. There was no evidence of lower genital tract bleeding. An ultrasound exam showed evidence of a 2.5 to 3 cm mass of a mixed echogenicity in the lower uterine segment or upper cervix. She was feeling faint and was noted to be tachycardic to about 120. She was transported to the hospital by ambulance from the office and then went straight to the preop area. She presents now for dilatation and curettage. Please see the admission history and physical for further details. DESCRIPTION OF PROCEDURE The patient was taken to the operating room and placed on the table in the supine position. She was induced into general anesthesia and intubated. She was placed in a lithotomy position. A pelvic exam under anesthesia revealed an approximately eight-week sized, firm uterus. Bleeding was still bright red and moderately heavy, not quite as brisk as when she was in the office. The anterior cervix was grasped with a long Allis clamp to use for traction. The cervix was sounded to 9 cm. The cervix was easily dilated without prior dilatation to #14 Vincentian. Sharp curettage was performed with some fragments of tissue being withdrawn. Suction curettage was then performed with an 11 mm suction curette with a large 4 x 2 x 2 cm mass of tissue being withdrawn that appeared to be decidua. Sharp and suction curettage were then alternated with only gentle pressure applied to the sharp curette without a significant amount of more tissue being withdrawn. Bleeding was minimal at this point. The patient was awakened and taken to the PACU in stable condition. Estimated blood loss intraoperatively was about 50 mL, although preoperative blood loss was considered to be at least 500 to 1000 mL. MTDD
[2017-09-18 03:00] VITALS: BP 97/54
[2017-09-18] MEDS: APAP/HYDROCODONE 325/5 TAB PO PRN ×3 (04:56→14:57)
[2017-09-18 06:10] LABS: PLATELET COUNT, AUTOMATED 212 K/uL (150-450)
--- NOTE | 2017-09-18 08:00 | OB/GYN Progress Note ---
OB Subjective Progress Notes Subjective Feeling much stronger, ambulating and voiding well after 2nd unit of PRBC's transfused. Scant lochia. Has generalized myalgias, relieved by Lortab. Feels ready for discharge. OB Objective Physical Exam Vital Signs Date Time Temp Pulse Resp B/P (MAP) Pulse Ox O2 Delivery O2 Flow Rate FiO2 09/18/17 05:00 19 98 Room Air 09/18/17 03:00 97.5 76 97/54 (68) General Appearance: Alert/Awake/No Acute Distress Cardiovascular: Regular Rate and Rhythm Respiratory: No Respiratory Distress, Clear to Auscultation Abdomen: Soft, Non-Tender, Non-Distended, Bowel Sounds Present Extremities: No Tender Calves, No Edema Psychological: Alert & Oriented X3, Appropriate Mood & Affect Result Diagram: 09/18/17 0525 Assessment and Plan Problems: (1) Delayed hemorrhage Assessment & Plan: Doing much better, ready for discharge home. NANETTE ESTES MD Sep 18, 2017 08:00
[2017-09-18] MEDS ORDERED: LOR5/325 PO (08:08)
--- NOTE | 2017-09-18 08:16 | OB/GYN Discharge Summary ---
Discharge Summary Reason for Hosp/Final Diag: (1) Delayed hemorrhage Hospital Course & Plan: The patient was admitted emergently for D&C, which was performed under general anesthesia without complication, with a 4x2x2 cm piece of placenta-like tissue being withdrawn. She had minimal bleeding after that. She required a transfusion of 2 units of PRBC's. She remained stable overnight, and was discharged home the morning after D&C, in good condition. Lates Vital Signs Vital Signs Date Time Temp Pulse Resp B/P (MAP) Pulse Ox O2 Delivery O2 Flow Rate FiO2 09/18/17 05:00 19 98 Room Air 09/18/17 03:00 97.5 76 97/54 (68) Weight (Pounds): 120 Result Diagram: 09/18/17524 Condition: Improved Discharge: Home, Self Custodial Meds Active Scripts Hydrocodone Bit/Acetaminophen (HYDROCODON-ACETAMINOPHEN 5-325) 1 Each Tablet, 1- 2 EACH PO Q4H Y for PAIN, #10 TAB Take one tablet with one plain Tylenol tablet every 6 hours as needed for pain. Prov:NANETTE ESTES MD 09/18/17 Ferrous Sulfate (FERROUS SULFATE) 325 Mg Tablet.dr, 1 TAB PO BID, #60 TAB 0 Refills Prov:SERA NICK MD 08/24/17 Docusate Calcium (DOCUSATE CALCIUM) 240 Mg Capsule, 1 CAP PO BID, #30 CAPSULE 0 Refills Prov:SERA NICK MD 08/24/17 Enoxaparin Sodium (LOVENOX) 60 Mg/0.6 Ml Disp.syrin, 60 MG SQ BID for 45 Days, # 90 SYR Prov:SERA NICK MD 08/23/17 Ibuprofen (IBUPROFEN) 800 Mg Tablet, 1 TAB PO Q8H, #30 TAB 0 Refills Take with food every 8 hours. Prov:SERA NICK MD 08/23/17 Hydromorphone Hcl (HYDROMORPHONE HCL) 2 Mg Tablet, 2-4 MG PO Q4H for PAIN, #20 TAB 0 Refills Prov:SERA NICK MD 08/23/17 Reported Medications Vits W-Ca,Fe,Fa(<1MG) ( VITAMINS) 1 Each Tablet, 1 EACH PO DAILY, TAB 05/25/17 Follow up with: Dr. Nick [phone] Follow up in: 5-7 days Discharge Diet: As Tolerates Discharge Activity: As Tolerates Copies to: NANETTE ESTES MD, MARK F MD Sep 18, 2017 08:16
[2017-09-18] MEDS ORDERED: LOPERAMIDE HCL 2 MG CAP PO ONE (08:25)
[2017-09-18] MEDS ORDERED: ENOXAPARIN 30 MG/0.3 ML SYR SC SCH (09:00)
[2017-09-18] MEDS ORDERED: MULTIVITAMINS (PRENATAL) TAB PO SCH (09:00)
[2017-09-18] MEDS ORDERED: ENOXAPARIN 100 MG/ML SYR SC SCH (09:00)
[2017-09-18] MEDS: FERROUS SULFATE 325 MG TAB PO SCH ×2 (09:02→18:36)
[2017-09-18 09:15] VITALS: BP 91/60
[2017-09-18] MEDS ORDERED: ACETAMINOPHEN(*)1000 MG/100 ML 100 ML IVPB ONE (16:15)
[2017-09-18] MEDS ORDERED: CELECOXIB 200 MG CAP PO ONE (18:05)
[2017-09-18 19:00] VITALS: BP 95/61
== END 2017-09-18 08:16 | disposition home or self-care (01) ==
LOC: OR 12:35 → OB 15:40
PROVIDERS: ADMIT Obstetrics & Gynecology; ATTEND Obstetrics & Gynecology
DX: O72.2 Delayed and secondary postpartum hemorrhage (principal); I95.9 Hypotension, unspecified; F53 Mental and behavioral disorders associated with the puerperium, not elsewhere classified; R00.0 Tachycardia, unspecified
CPT/HCPCS: 36415; 36430; 58120; 85025; 85520; 86850; 86900; 86901; 86920; 88307; 96372; G0378; J0131; J0330; J1100; J1650; J3010; J3490; P9016

== ENCOUNTER → 2017-09-17 | Outpatient (CLI) | payer BC ==
[2017-08-22 12:22] VITALS: BMI 24.5
[~2017-09-17] MED LIST changes: +LOR5/325 PO
== END ==
LOC: AMB 12:06
PROVIDERS: ATTEND Nurse Practitioner
DX: O72.2 Delayed and secondary postpartum hemorrhage (principal); R10.2 Pelvic and perineal pain; R42 Dizziness and giddiness; R53.1 Weakness; R11.2 Nausea with vomiting, unspecified; R51 Headache
CPT/HCPCS: A0425; A0427

== ENCOUNTER 2017-10-16 16:00 | Outpatient (RCR) | payer BC ==
[2017-08-22 12:22] VITALS: Wt 60.8 kg
[~2017-10-16 16:00] MED LIST changes: +LOR5/325 PO
[2017-10-16 16:03] VITALS: BP 121/66
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
[2017-12-05] MEDS ORDERED: WARF5TAB23 PO (12:04)
[2017-12-05] MEDS ORDERED: ENOX60DI8 SQ (12:04)
[2017-12-05] MEDS ORDERED: PRE5 PO (13:22)
== END 2017-12-10 10:28 | disposition home or self-care (01) ==
LOC: ONC 16:00
PROVIDERS: ATTEND Internal Medicine Hematology
DX: Z86.711 Personal history of pulmonary embolism (principal); Z87.891 Personal history of nicotine dependence
CPT/HCPCS: 99202

== ENCOUNTER 2017-11-12 09:00 | Emergency (ER) | payer BC ==
[2017-08-22 12:22] VITALS: Wt 59.0 kg
[2017-11-12] MEDS ORDERED: NS(*) 0.9% 1000 ML BAG 1,000 ML IV ONE (09:26)
[2017-11-12] MEDS ORDERED: ONDANSETRON 4 MG/2 ML VIAL IVP ONE (09:30)
--- NOTE | 2017-11-12 09:37 | ER Report ---
History and Physical Time Seen By MD: 09:25 Hx. of Stated Complaint: PATIENT REPORTS LEFT LOWER QUADRANT PAIN THAT STARTED LAST NIGHT. SHE REPORTS THAT IT FEELS LIKE A PULLED MUSCLE . SHE IS ALSO REPORTING SHORTNESS OF BREATH BUT THIS IS CHRONIC FOR HER AND SHE HAS HAD A PULMONARY EMBOLUS IN THE PAST HPI/ROS CHIEF COMPLAINT: Abdominal pain chest pain HISTORY OF PRESENT ILLNESS: Patient is a 27-year-old female history of multiple extensive PEs including a saddle pulmonary emboli comes emergency Department with complaint of left lower quadrant pain and and continual worsening of her chest pain and some mild shortness of breath. Patient states that for the last couple days she's noticed some dull pulling in her abdominal area primarily from her pubic bone up into her left lower quadrant area. Vitamin and a pulled muscle versus is doesn't feel like that no listing relieving factors no recent falls or history of trauma associated with this she also describing some persistent chest discomfort again patient has a long history of pulmonary emboli including a saddle emboli she also had some bleeding issues after being put on anticoagulation medication. On arrival here she describes her pain the left lower quadrant is dull and aching again without radiation listing relieving factors for chest pain is persistent Midsternal dull and aching with associated shortness of breath which she states is unchanged from her baseline. Patient has no additional complaints at this time REVIEW OF SYSTEMS: Respiratory: Shortness of breath no cough Cardiovascular: Chest pain no palpitation Gastrointestinal: Left lower quadrant abdominal pain Musculoskeletal: No back pain. Remainder of the 14 system rev: Yes Allergies: Coded Allergies: sulfamethoxazole (Verified Allergy, Intermediate, RASH, 05/22/17) trimethoprim (Verified Allergy, Intermediate, RASH, 05/22/17) nifedipine (Verified Adverse Reaction, Intermediate, ARRYTHMIA, 08/22/17) Home Meds Active Scripts Hydrocodone Bit/Acetaminophen (HYDROCODON-ACETAMINOPHEN 5-325) 1 Each Tablet, 1- 2 EACH PO Q4H PRN for PAIN, #10 TAB Take one tablet with one plain Tylenol tablet every 6 hours as needed for pain. Prov:NANETTE ESTES MD 09/18/17 Ferrous Sulfate (FERROUS SULFATE) 325 Mg Tablet.dr, 1 TAB PO BID, #60 TAB 0 Refills Prov:SERA LOO MD 08/24/17 Reported Medications Vits W-Ca,Fe,Fa(<1MG) ( VITAMINS) 1 Each Tablet, 1 EACH PO DAILY, TAB 05/25/17 Reviewed Nurses Notes: Yes Old Medical Records Reviewed: Yes Hx Smoking: No Smoking Status: Never Smoker Exposure to Second Hand Smoke?: No Hx Substance Use Disorder: No Hx Alcohol Use: Yes (1 glass of wine since ) Constitutional Vital Sign - Last 24 Hours 11/12/17 11/12/17 11/12/17 09:08 09:08 09:30 Temp 98.2 Pulse 86 74 Resp 24 B/P (MAP) 107/85 107/85 (92) 103/63 (76) Pulse Ox 97 95 O2 Delivery Room Air Physical Exam General Appearance: The patient is alert, has no immediate need for airway protection and no current signs of toxicity. [ ] Eyes: Pupils equal and round no injection. Respiratory: Chest is non tender, lungs are clear to auscultation. Cardiac: regular rate and rhythm [ ] Gastrointestinal: Abdominal pain negative with palpation of the left lower quadrant however positive over McBurney's tenderness this was repeated potentially and a Rovsing sign otherwise normal bowel sounds otherwise negative exam Musculoskeletal: Neck: Neck is supple and non tender. Extremities have full range of motion and are non tender. Skin: No rashes or lesions. [ ] DIFFERENTIAL DIAGNOSIS: After history and physical exam differential diagnosis was considered for acute appendicitis ovarian cyst pulmonary emboli Medical Decision Making Data Points Result Diagram: 11/12/1792811/12/17928 Laboratory Hematology Test 11/12/17 09:03 11/12/17 09:29 Urine Color Yellow Urine Clarity Cloudy Urine pH 5.0 pH (4.8-9.5) Urine Specific Ralston 1.020 Urine Protein Negative mg/dL (NEGATIVE) Urine Glucose (UA) Negative mg/dL (NEGATIVE) Urine Ketones Negative mg/dL (NEGATIVE) Urine Blood Negative (NEGATIVE) Urine Nitrite Negative (NEGATIVE) Urine Bilirubin Negative (NEGATIVE) Urine Urobilinogen Negative mg/dL (0.2-1.9) Urine Leukocyte Esterase Moderate (NEGATIVE) Urine RBC 1 /HPF (0-2/HPF) Urine WBC 35 /HPF (0-5/HPF) Urine Squamous Epithelial Cells Many /LPF (</=FEW) Urine Bacteria Few /HPF (NONE-FEW) Urine Mucus Few /HPF (NONE-FEW) Urine HCG, Qualitative Negative (NEGATIVE) Red Blood Count 4.77 M/uL (4.17-5.56) Mean Corpuscular Volume 92.4 fL (80.0-96.0) Mean Corpuscular Hemoglobin 30.8 pg (26.0-33.0) Mean Corpuscular Hemoglobin Concent 33.3 g/dL (32.0-36.0) Red Cell Distribution Width 12.8 % (11.5-14.5) Mean Platelet Volume 9.4 fL (7.2-11.1) Neutrophils (%) (Auto) 61.2 % (39.4-72.5) Lymphocytes (%) (Auto) 27.5 % (17.6-49.6) Monocytes (%) (Auto) 7.6 % (4.1-12.4) Eosinophils (%) (Auto) 2.4 % (0.4-6.7) Basophils (%) (Auto) 1.3 % (0.3-1.4) Nucleated RBC Relative Count (auto) 0.0 /100WBC Neutrophils # (Auto) 3.5 K/uL (2.0-7.4) Lymphocytes # (Auto) 1.6 K/uL (1.3-3.6) Monocytes # (Auto) 0.4 K/uL (0.3-1.0) Eosinophils # (Auto) 0.1 K/uL (0.0-0.5) Basophils # (Auto) 0.1 K/uL (0.0-0.1) Nucleated RBC Absolute Count (auto) 0.00 K/uL Prothrombin Time 13.1 seconds (12.0-14.4) Prothromb Time International Ratio 0.99 Activated Partial Thromboplast Time 27 seconds (23-35) Sodium Level 141 mmol/L (137-145) Potassium Level 3.9 mmol/L (3.5-5.0) Chloride Level 103 mmol/L (98-107) Carbon Dioxide Level 24 mmol/L (22-31) Blood Urea Nitrogen 8 mg/dl (7-18) Creatinine 0.60 mg/dl (0.52-1.04) Glomerular Filtration Rate Calc > 60.0 Random Glucose 137 mg/dl (75-110) Calcium Level 9.4 mg/dl (8.4-10.2) Total Bilirubin 0.4 mg/dl (0.2-1.3) Aspartate Amino Transf (AST/SGOT) 30 U/L (0-35) Alanine Aminotransferase (ALT/SGPT) 17 U/L (0-56) Alkaline Phosphatase 49 U/L (0-126) Total Protein 7.1 g/dl (6.3-8.2) Albumin 3.9 g/dl (3.5-5.0) Lipase 68 U/L (23-300) Serum Alcohol < 10 mg/dl Chemistry Test 11/12/17 09:03 11/12/17 09:29 Urine Color Yellow Urine Clarity Cloudy Urine pH 5.0 pH (4.8-9.5) Urine Specific Ralston 1.020 Urine Protein Negative mg/dL (NEGATIVE) Urine Glucose (UA) Negative mg/dL (NEGATIVE) Urine Ketones Negative mg/dL (NEGATIVE) Urine Blood Negative (NEGATIVE) Urine Nitrite Negative (NEGATIVE) Urine Bilirubin Negative (NEGATIVE) Urine Urobilinogen Negative mg/dL (0.2-1.9) Urine Leukocyte Esterase Moderate (NEGATIVE) Urine RBC 1 /HPF (0-2/HPF) Urine WBC 35 /HPF (0-5/HPF) Urine Squamous Epithelial Cells Many /LPF (</=FEW) Urine Bacteria Few /HPF (NONE-FEW) Urine Mucus Few /HPF (NONE-FEW) Urine HCG, Qualitative Negative (NEGATIVE) White Blood Count 5.8 k/uL (4.5-11.0) Red Blood Count 4.77 M/uL (4.17-5.56) Hemoglobin 14.7 g/dL (12.0-16.0) Hematocrit 44.0 % (34.0-47.0) Mean Corpuscular Volume 92.4 fL (80.0-96.0) Mean Corpuscular Hemoglobin 30.8 pg (26.0-33.0) Mean Corpuscular Hemoglobin Concent 33.3 g/dL (32.0-36.0) Red Cell Distribution Width 12.8 % (11.5-14.5) Platelet Count 263 K/uL (150-450) Mean Platelet Volume 9.4 fL (7.2-11.1) Neutrophils (%) (Auto) 61.2 % (39.4-72.5) Lymphocytes (%) (Auto) 27.5 % (17.6-49.6) Monocytes (%) (Auto) 7.6 % (4.1-12.4) Eosinophils (%) (Auto) 2.4 % (0.4-6.7) Basophils (%) (Auto) 1.3 % (0.3-1.4) Nucleated RBC Relative Count (auto) 0.0 /100WBC Neutrophils # (Auto) 3.5 K/uL (2.0-7.4) Lymphocytes # (Auto) 1.6 K/uL (1.3-3.6) Monocytes # (Auto) 0.4 K/uL (0.3-1.0) Eosinophils # (Auto) 0.1 K/uL (0.0-0.5) Basophils # (Auto) 0.1 K/uL (0.0-0.1) Nucleated RBC Absolute Count (auto) 0.00 K/uL Prothrombin Time 13.1 seconds (12.0-14.4) Prothromb Time International Ratio 0.99 Activated Partial Thromboplast Time 27 seconds (23-35) Glomerular Filtration Rate Calc > 60.0 Calcium Level 9.4 mg/dl (8.4-10.2) Total Bilirubin 0.4 mg/dl (0.2-1.3) Aspartate Amino Transf (AST/SGOT) 30 U/L (0-35) Alanine Aminotransferase (ALT/SGPT) 17 U/L (0-56) Alkaline Phosphatase 49 U/L (0-126) Total Protein 7.1 g/dl (6.3-8.2) Albumin 3.9 g/dl (3.5-5.0) Lipase 68 U/L (23-300) Serum Alcohol < 10 mg/dl Coagulation Test 11/12/17 09:29 Prothrombin Time 13.1 seconds Prothromb Time International Ratio 0.99 Activated Partial Thromboplast Time 27 seconds Toxicology Test 11/12/17 09:29 Serum Alcohol < 10 mg/dl Urinalysis Test 11/12/17 09:03 Urine Color Yellow Urine Clarity Cloudy Urine pH 5.0 pH (4.8-9.5) Urine Specific Ralston 1.020 Urine Protein Negative mg/dL (NEGATIVE) Urine Glucose (UA) Negative mg/dL (NEGATIVE) Urine Ketones Negative mg/dL (NEGATIVE) Urine Blood Negative (NEGATIVE) Urine Nitrite Negative (NEGATIVE) Urine Bilirubin Negative (NEGATIVE) Urine Urobilinogen Negative mg/dL (0.2-1.9) Urine Leukocyte Esterase Moderate (NEGATIVE) Urine RBC 1 /HPF (0-2/HPF) Urine WBC 35 /HPF (0-5/HPF) Urine Squamous Epithelial Cells Many /LPF (</=FEW) Urine Bacteria Few /HPF (NONE-FEW) Urine Mucus Few /HPF (NONE-FEW) Urine HCG, Qualitative Negative (NEGATIVE) ED Course/Re-evaluation ED Course ED course medical decision making 27-year-old female comes emergency Department today with a complaint of left lower quadrant pain and some shortness of breath or pleuritic chest discomfort patient is a long history of pulmonary emboli CT angiogram was negative for pulmonary emboli on examination she appeared to have a early Rovsing sign with some pain over McBurney's tenderness to the CT the abdomen and pelvis with IV contrast this was negative for any issues other than changes in the uterus Baseline labs performed here is neg ative rest of her labs are otherwise unremarkable patient resting comfortably patiently diagnosis abdominal pain no clear diagnosis Decision to Disposition Date: Nov 12, 2017 Decision to Disposition Time: 10:50 Depart Departure Latest Vital Signs Vital Signs Date Time Temp Pulse Resp B/P (MAP) Pulse Ox O2 Delivery O2 Flow Rate FiO2 11/12/17 09:30 74 103/63 (76) 95 11/12/17 09:08 98.2 24 Room Air Impression: Primary Impression: Abdominal pain Condition: Improved Disposition: HOME OR SELF-CARE Referrals: KHUSHBOO COLIN FARRUKH MD 5 Days Patient Instructions: Abdominal Pain (ED) JONELLE KIRKLAND MD Nov 12, 2017 09:37
[2017-11-12] MEDS ORDERED: IOPAMIDOL 76% 100 ML INFUS BTL 100 ML ONE (09:40)
[2017-11-12] MEDS ORDERED: NS(*) 0.9% 50 ML BAG 50 ML ONE (09:41)
[2017-11-12 09:46] LABS: PLATELET COUNT, AUTOMATED 263 K/uL (150-450)
[2017-11-12 09:53] LABS: INR 0.99
--- NOTE | 2017-11-12 10:17 | EKG ---
FACILITY: [facility] PATIENT NAME: FADY BUTTS : [id number] MR: [id number] V: [id number] EXAM DATE: ORDERING PHYSICIAN: JONELLE KIRKLAND TECHNOLOGIST: SENAIT Luna Reason : SOB Blood Pressure : / mmHG Vent. Rate : 079 BPM Atrial Rate : 079 BPM P-R Int : 144 ms QRS Dur : 078 ms QT Int : 386 ms P-R-T Axes : 075 067 053 degrees QTc Int : 442 ms Normal sinus rhythm Borderline ECG When compared with ECG of 14-SEP-2017 18:36, No significant change was found Confirmed by Monroe Hsieh ([id number]) on 11/12/2017 8:29:15 PM Referred By: ISAEL Confirmed By:Monroe Devine
[2017-11-12 10:30] VITALS: BP 100/67
--- NOTE | 2017-11-12 10:38 | RADIOLOGY IMAGING REPORT ---
FACILITY: [facility] PATIENT NAME: Winsome Tellez : 1990 MR: [id number] V: [id number] EXAM DATE: ORDERING PHYSICIAN: JONELLE KIRKLAND TECHNOLOGIST: Location: [facility] Patient: Winsome Tellez : 1990 Visit/Account:[id number] Date of Sevice: 11/12/2017 ABDOMEN/PELVIS WITH CONTRAST HISTORY: chest pain sob TECHNIQUE: CT abdomen and pelvis 75 cc of Isovue 370 IV. One of the following dose optimization [employer] [employer] was utilized in the performance of this exam: automated exposure control; adjustment of the m A and/or kV according to the patient's size; or use of an iterative reconstruction technique. Specif ic details can be referenced in the facility's radiology CT exam operational policy. COMPARISON: None. FINDINGS: Liver/gallbladder: The liver demonstrates normal enhancement. Gallbladder is unremarkable. Spleen: Normal. Adrenals: Normal. Pancreas: Normal enhancement without evidence of mass. Kidneys/: The right and left kidney demonstrate normal enhancement without evidence of hydronephro sis or mass. Both ureters are normal. Pelvis: Urinary bladder and uterus are normal. GI: There is no focal abnormality in the small bowel or colon. Vessels/spaces/nodes: Negative. Bones/soft tissues: There are no lytic or blastic bone lesions. Soft tissues are normal. Visualized lung bases: Subsegmental atelectasis right lung base is seen. IMPRESSION: Normal CT abdomen and pelvis. There are changes in the uterus. Report Dictated By: Vinnie Boykin at 11/12/2017 10:29 AM Report E-Signed By: Vinnie Boykin at 11/12/2017 10:33 AM WSN:[id number]
--- NOTE | 2017-11-12 10:41 | RADIOLOGY IMAGING REPORT ---
FACILITY: [facility] PATIENT NAME: Winsome Tellez : 1990 MR: [id number] V: [id number] EXAM DATE: ORDERING PHYSICIAN: JONELLE KIRKLAND TECHNOLOGIST: Location: [facility] [place] Patient: Winsome Tellez : 1990 Visit/Account:[id number] Date of Sevice: 11/12/2017 CTA CHEST WW/O CNTR (PULM ANG) HISTORY: Shortness of breath. TECHNIQUE: CTA chest with intravenous contrast attention to pulmonary arteries. Sagittal, coronal a nd slab 3D MIP coronal reconstructed images were also created for further evaluation and interpretati on. One of the following dose optimization techniques was utilized in the performance of this exam: a utomated exposure control; adjustment of the mA and/or kV according to the patient's size; or use of an iterative reconstruction technique. Specific details can be referenced in the facility's radiolog y CT exam operational policy. CONTRAST: 75 cc Isovue-370 IV. COMPARISON: CTA chest 08/30/2017 FINDINGS: Heart/vessels: There is no filling defect in either the right or left pulmonary arterial vascular tr ee. Lungs/pleura: Subsegmental atelectasis is seen in the right lung base. The lungs are otherwise clear . Mediastinum: Normal. Lymph nodes: There is no lymphadenopathy. Visualized upper abdomen: Visualized portions of the liver, spleen, adrenal glands, and pancreas are normal. Bones/soft tissues: Normal. IMPRESSION: 1. No evidence of pulmonary embolus. 2. Mild subsegmental atelectasis right lung base. Lungs are otherwise clear. Report Dictated By: Vinnie Boykin at 11/12/2017 10:33 AM Report E-Signed By: Vinnie Boykin at 11/12/2017 10:37 AM WSN:[id number]
== END 2017-11-12 11:03 | disposition home or self-care (01) ==
LOC: ER 09:03
DX: R10.32 Left lower quadrant pain (principal)
CPT/HCPCS: 71275; 74177; 80320; 81001; 81025; 83690; 85025; 85610; 85730; 93005; 96360; 99284; J7030; J7050; Q9967; 82040; 82247; 82310; 82374; 82435; 82565; 82947; 84075; 84132; 84155; 84295; 84450; 84460; 84520

== ENCOUNTER 2017-12-05 11:17 | Emergency (ER) | payer BC ==
[2017-08-22 12:22] VITALS: Wt 59.0 kg
[2017-12-05] MEDS ORDERED: ENOX60DI8 SQ (12:04)
[2017-12-05] MEDS ORDERED: WARF5TAB23 PO (12:04)
[2017-12-05] MEDS ORDERED: NS(*) 0.9% 1000 ML BAG 1,000 ML IV ONE (12:20)
[2017-12-05] MEDS ORDERED: DEXAMETHASONE SOD PHOS 10MG/ML IVP ONE (12:20)
--- NOTE | 2017-12-05 12:20 | ER Report ---
History and Physical Time Seen By MD: 12:09 Hx. of Stated Complaint: DIAGNOSED WITH LUPUS YESTERDAY - C/O WEAKNESS AND FATIGUE HPI/ROS CHIEF COMPLAINT: Generalized weakness, nausea, vomiting, weight loss, recent diagnosis of lupus HISTORY OF PRESENT ILLNESS: 27-year-old female patient presents to the emergency room with complaint of generalized weakness, nausea, vomiting, weight loss with a recent diagnosis of lupus. Patient states that she has had these symptoms for the past 2 years. She states she's been seen multiple times here in the emergency room. She states that she was diagnosed yesterday by her primary care provider for lupus. She states that he started her back on an anticoagulant, however has not started her on any medication to help with lupus. Patient states that today she just feels that she is unable to care for herself or her child. She states she is weak. She states yesterday she had difficult time getting up and ambulating into the kitchen and back to make her 3-month-old a bottle. Michael nt denies having any fevers, but states she does have generalized achiness. REVIEW OF SYSTEMS: Respiratory: No cough, no dyspnea. Cardiovascular: No chest pain, no palpitations. Gastrointestinal: No vomiting, no abdominal pain. Musculoskeletal: As noted above. Allergies: Coded Allergies: sulfamethoxazole (Verified Allergy, Intermediate, RASH, 05/22/17) trimethoprim (Verified Allergy, Intermediate, RASH, 05/22/17) nifedipine (Verified Adverse Reaction, Intermediate, ARRYTHMIA, 08/22/17) Home Meds Active Scripts Prednisone 5 Mg Tab (PREDNISONE 5 MG TAB) 5 Mg Tablet, 5 MG PO QDAY, #7 TAB Prov:MESFIN SANCHEZ 12/05/17 Ferrous Sulfate (FERROUS SULFATE) 325 Mg Tablet.dr, 1 TAB PO BID, #60 TAB 0 Refills Prov:SERA LOO MD 08/24/17 Reported Medications Warfarin Sodium (WARFARIN SODIUM) 5 Mg Tablet, 5 MG PO QDAY, TAB 12/05/17 Enoxaparin Sodium (LOVENOX) 60 Mg/0.6 Ml Disp.syrin, 60 MG SQ BID 12/05/17 Vits W-Ca,Fe,Fa(<1MG) ( VITAMINS) 1 Each Tablet, 1 EACH PO DAILY, TAB 05/25/17 Discontinued Scripts Hydrocodone Bit/Acetaminophen (HYDROCODON-ACETAMINOPHEN 5-325) 1 Each Tablet, 1- 2 EACH PO Q4H PRN for PAIN, #10 TAB Take one tablet with one plain Tylenol tablet every 6 hours as needed for pain. Prov:NANETTE ESTES MD 09/18/17 Past Medical/Surgical History Patient has a past medical history of pleural effusion, pulmonary embolism, fractures, alcohol use, depression, new diagnosis of lupus. Patient has a surgical history of right wrist surgery 4. Reviewed Nurses Notes: Yes Hx Smoking: No Smoking Status: Never Smoker Exposure to Second Hand Smoke?: No Hx Substance Use Disorder: No Hx Alcohol Use: Yes (1 glass of wine since ) Constitutional Vital Sign - Last 24 Hours 12/05/17 12/05/17 12/05/17 11:33 12:00 12:30 Temp 98.2 Pulse 74 Resp 20 B/P (MAP) 104/68 112/54 (73) 86/43 (57) Pulse Ox 92 O2 Delivery Room Air Physical Exam General Appearance: The patient is alert, has no immediate need for airway protection and no current signs of toxicity. Respiratory: Chest is non tender, lungs are clear to auscultation. Cardiac: regular rate and rhythm Gastrointestinal: Abdomen is soft and non tender, no masses, bowel sounds normal. Musculoskeletal: Neck: Neck is supple and non tender. Extremities have full range of motion and are non tender. Skin: No rashes or lesions. DIFFERENTIAL DIAGNOSIS: After history and physical exam differential diagnosis was considered for lupus, depression, viral syndrome. Medical Decision Making Data Points Result Diagram: 12/05/17 1243 12/05/17 1243 Laboratory Hematology Test 12/05/17 12:43 Red Blood Count 4.96 M/uL (4.17-5.56) Mean Corpuscular Volume 91.3 fL (80.0-96.0) Mean Corpuscular Hemoglobin 30.8 pg (26.0-33.0) Mean Corpuscular Hemoglobin Concent 33.7 g/dL (32.0-36.0) Red Cell Distribution Width 12.3 % (11.5-14.5) Mean Platelet Volume 8.9 fL (7.2-11.1) Neutrophils (%) (Auto) 56.9 % (39.4-72.5) Lymphocytes (%) (Auto) 30.6 % (17.6-49.6) Monocytes (%) (Auto) 7.8 % (4.1-12.4) Eosinophils (%) (Auto) 1.3 % (0.4-6.7) Basophils (%) (Auto) 3.4 % (0.3-1.4) Nucleated RBC Relative Count (auto) 0.0 /100WBC Neutrophils # (Auto) 3.5 K/uL (2.0-7.4) Lymphocytes # (Auto) 1.9 K/uL (1.3-3.6) Monocytes # (Auto) 0.5 K/uL (0.3-1.0) Eosinophils # (Auto) 0.1 K/uL (0.0-0.5) Basophils # (Auto) 0.2 K/uL (0.0-0.1) Nucleated RBC Absolute Count (auto) 0.00 K/uL Sodium Level 138 mmol/L (137-145) Potassium Level 3.9 mmol/L (3.5-5.0) Chloride Level 104 mmol/L (98-107) Carbon Dioxide Level 24 mmol/L (22-31) Blood Urea Nitrogen 10 mg/dl (7-18) Creatinine 0.60 mg/dl (0.52-1.04) Glomerular Filtration Rate Calc > 60.0 Random Glucose 72 mg/dl (75-110) Calcium Level 9.5 mg/dl (8.4-10.2) Total Bilirubin 0.4 mg/dl (0.2-1.3) Aspartate Amino Transf (AST/SGOT) 22 U/L (0-35) Alanine Aminotransferase (ALT/SGPT) 28 U/L (0-56) Alkaline Phosphatase 53 U/L (0-126) Total Protein 7.1 g/dl (6.3-8.2) Albumin 4.1 g/dl (3.5-5.0) Chemistry Test 12/05/17 12:43 White Blood Count 6.1 k/uL (4.5-11.0) Red Blood Count 4.96 M/uL (4.17-5.56) Hemoglobin 15.3 g/dL (12.0-16.0) Hematocrit 45.3 % (34.0-47.0) Mean Corpuscular Volume 91.3 fL (80.0-96.0) Mean Corpuscular Hemoglobin 30.8 pg (26.0-33.0) Mean Corpuscular Hemoglobin Concent 33.7 g/dL (32.0-36.0) Red Cell Distribution Width 12.3 % (11.5-14.5) Platelet Count 262 K/uL (150-450) Mean Platelet Volume 8.9 fL (7.2-11.1) Neutrophils (%) (Auto) 56.9 % (39.4-72.5) Lymphocytes (%) (Auto) 30.6 % (17.6-49.6) Monocytes (%) (Auto) 7.8 % (4.1-12.4) Eosinophils (%) (Auto) 1.3 % (0.4-6.7) Basophils (%) (Auto) 3.4 % (0.3-1.4) Nucleated RBC Relative Count (auto) 0.0 /100WBC Neutrophils # (Auto) 3.5 K/uL (2.0-7.4) Lymphocytes # (Auto) 1.9 K/uL (1.3-3.6) Monocytes # (Auto) 0.5 K/uL (0.3-1.0) Eosinophils # (Auto) 0.1 K/uL (0.0-0.5) Basophils # (Auto) 0.2 K/uL (0.0-0.1) Nucleated RBC Absolute Count (auto) 0.00 K/uL Glomerular Filtration Rate Calc > 60.0 Calcium Level 9.5 mg/dl (8.4-10.2) Total Bilirubin 0.4 mg/dl (0.2-1.3) Aspartate Amino Transf (AST/SGOT) 22 U/L (0-35) Alanine Aminotransferase (ALT/SGPT) 28 U/L (0-56) Alkaline Phosphatase 53 U/L (0-126) Total Protein 7.1 g/dl (6.3-8.2) Albumin 4.1 g/dl (3.5-5.0) ED Course/Re-evaluation ED Course Patient was admitted to an exam room, history and physical were obtained. Differential diagnoses were considered. On examination lungs are clear, heart is regular, abdomen soft nontender. An IV was started, CBC, CMP were done. Patient was given 8 mg of Decadron. We did give her a liter of normal saline. On reevaluation patient states she's not feeling any improved. I believe that we are likely looking at her lupus which is an underlying cause. We will go ahead and discharge her home with this time. We will have her take prednisone 5 mg daily for the next week. She is to follow-up with her primary care provider on Friday of next week as previously scheduled. She verbalized understanding and agreement with plan. Decision to Disposition Date: Dec 05, 2017 Decision to Disposition Time: 13:23 Depart Departure Latest Vital Signs Vital Signs Date Time Temp Pulse Resp B/P (MAP) Pulse Ox O2 Delivery O2 Flow Rate FiO2 12/05/17 12:30 86/43 (57) 12/05/17 11:33 98.2 74 20 92 Room Air Impression: Primary Impression: Lupus (systemic lupus erythematosus) Condition: Improved Disposition: HOME OR SELF-CARE New Scripts Prednisone 5 Mg Tab (PREDNISONE 5 MG TAB) 5 Mg Tablet 5 MG PO QDAY, #7 TAB Prov: MESFIN SANCHEZ 12/05/17 Departure Forms: Medications Reconciliation, Patient Portal Information, ER Transition Record Patient Instructions: Lupus Erythematosus (DC) Additional Instructions: Get plenty of rest. Take your medication as prescribed. Follow up with your primary care provider on Friday as scheduled. Return to the ER if condition worsens. Take medication as prescribed. Problem Qualifiers Primary Impression: Lupus (systemic lupus erythematosus) Systemic lupus erythematosus type: unspecified Systemic lupus erythematosus organ involvement: unspecified Qualified Codes: M32.9 - Systemic lupus erythematosus, unspecified MESFIN SANCHEZ Dec 05, 2017 12:20
[2017-12-05 12:30] VITALS: BP 86/43
[2017-12-05 12:54] LABS: PLATELET COUNT, AUTOMATED 262 K/uL (150-450)
[2017-12-05] MEDS ORDERED: PRE5 PO (13:22)
== END 2017-12-05 13:38 | disposition home or self-care (01) ==
LOC: ER 12:24
DX: M32.9 Systemic lupus erythematosus, unspecified (principal)
CPT/HCPCS: 85025; 96361; 96374; 99284; J1100; J7030; 82040; 82247; 82310; 82374; 82435; 82565; 82947; 84075; 84132; 84155; 84295; 84450; 84460; 84520

== ENCOUNTER → 2018-01-21 | Outpatient (CLI) | payer BC ==
[2017-08-22 12:22] VITALS: BMI 24.5
[~2018-01-21] MED LIST changes: +BARIUM SULFATE 176 GM BTL PO ONE; +BARIUM SULFATE 340 GM POWD ONE; +PRE5 PO; +WARF5TAB23 PO
--- NOTE | 2018-01-21 17:14 | RADIOLOGY IMAGING REPORT ---
FACILITY: [facility] PATIENT NAME: Winsome Tellez : 1990 MR: [id number] V: [id number] EXAM DATE: ORDERING PHYSICIAN: MARION BURGOS TECHNOLOGIST: Location: [facility] - [place] Patient: Winsome Tellez : 1990 Visit/Account:[id number] Date of Sevice: 01/21/2018 Exam type: UPPER GI W/SMALL BOWEL SERIES History: Unintentional weight loss Comparison: None. Findings: Double contrast upper GI series was performed with thick and thin barium and air contrast. A small a mount of gastroesophageal reflux was observed. No other abnormality of the stomach duodenal bulb or duodenal C-loop was seen. Barium was followed throughout the small bowel to the right-sided colon. There is rapid transit of the contrast which reached the right-sided the colon in 15 minutes. No muc osal abnormality identified. No evidence of bowel dilatation. The fluoroscopy dose area product was 402.56 micro-Chapman per meter squared IMPRESSION: 1. Small amount of gastroesophageal reflux Rapid passage of contrast through the small bowel which reached the right-sided the colon in 15 minut es. Report Dictated By: Lorena Gillespie MD at 01/21/2018 5:08 PM Report E-Signed By: Lorena Gillespie MD at 01/21/2018 5:10 PM WSN:[email or web address]
== END ==
LOC: RAD 00:34
PROVIDERS: ATTEND Internal Medicine
DX: K21.9 Gastro-esophageal reflux disease without esophagitis (principal); R63.4 Abnormal weight loss
CPT/HCPCS: 74245